=== PATIENT | female | born 1970 | race Caucasian/White ===

== ENCOUNTER 2018-11-27 09:42 | Emergency (ER) | payer SELFPAY ==
[2018-11-27] MEDS ORDERED: NA CHLORIDE 0.9% 1,000 ML ONE (10:20)
[2018-11-27] MEDS ORDERED: MORPHINE 4 MG/ML SYR ONE (10:20)
[2018-11-27] MEDS ORDERED: ONDANSETRON 4 MG/2 ML VIAL ONE (10:20)
--- NOTE | 2018-11-27 10:27 | RAD REPORT ---
EXAM DESCRIPTION: CT - Stone Protocol - 11/27/2018 10:16 am CLINICAL HISTORY: Flank pain. Hematuria;Flank pain COMPARISON: CTSTONE PROTOCOL dated 07/10/2013 TECHNIQUE: Axial images were obtained without oral or IV contrast. Lack of contrast limits solid org an and vascular assessment. The [id number] spans the entirety of the system partially obscuring uppermost abdomen and lung bases. Coronal reformatted images were obtained and reviewed. All CT scans are performed using dose optimization technique as appropriate and may include automated exposure control or mA/KV adjustment according to patient size. FINDINGS: The lower lung lewis are clear. Small hiatal hernia. Imaged portions of the liver and spleen show no suspicious findings on non-contrast imaging. The panc reas and adrenal glands are normal. No pathologic lymphadenopathy in the abdomen or pelvis. 8 mm stone (800 HU) inferior calyx left kidney without hydronephrosis. No right-sided urinary tract s tone or obstructive uropathy. No bowel obstruction, free air, free fluid or abscess. Normal appendix noted. Moderate L5-S1 spondylosis. IMPRESSION: 8 mm stone inferior calyx left kidney without hydronephrosis.
[2018-11-27 10:30] LABS: Absolute Lymphocytes (CBC) 2.8 K/uL (0.7-4.9); Absolute Monocytes 0.5 K/uL (0.1-1.3); Absolute Neutrophil 5.8 K/uL (1.8-8.0); Basophils % 0.4 % (0-1.3); Eosinophils % 3.8 % (0-4.4); Hematocrit 35.9 % (36.0-45.0); Lymphocytes % 29.2 % (15.3-44.8); MPV 8.5 fL (7.6-11.3); Monocytes % 5.5 % (3.3-12.3); RBC Red Blood Cell Count 5.59 M/uL (3.86-4.86)
[2018-11-27 10:51] LABS: Potassium 3.6 mmol/L (3.5-5.1)
[2018-11-27 11:14] LABS: Urine Bacteria <20 /HPF (<20); Urine Culture Reflex Order NOT NEEDED; Urine Mucus 2+ /HPF (NONE SEEN); Urine RBC TNTC /HPF (NONE SEEN)
[2018-11-27 11:42] LABS: Platelet Estimate ADEQ; Urine White Blood Cell Casts OK
[2018-11-27 11:43] LABS: Anisocytosis 1+; Basophilic Stippling 1+; Blood Morphology Comment NOTED (NOT SEEN); Hypochromasia 1+
--- NOTE | 2018-11-27 11:44 | ER ---
Nurse's Notes [facility] Name: Stacie Valera Age: 48 yrs Sex: Female : 1970 Arrival Date: 11/27/2018 Time: 09:45 Bed 18 Private MD: None, None Diagnosis: Hematuria;Dysuria Presentation: 11/27 09:50 Presenting complaint: Patient states: right low back and RLQ pain that began yesterday. aa5 Pt reports hematuria today and urinary frequency. 09:50 Acuity: ORAL 3 hj 09:50 Transition of care: patient was not received from another setting of care. Onset of hj symptoms was November 27, 2018. Risk Assessment: Do you want to hurt yourself or someone else? Patient reports no desire to harm self or others. Initial Sepsis Screen: Does the patient meet any 2 criteria? No. Patient's initial sepsis screen is negative. Does the patient have a suspected source of infection? No. Patient's initial sepsis screen is negative. Care prior to arrival: None. 09:50 Method Of Arrival: Ambulatory hj Triage Assessment: 09:50 General: Appears in no apparent distress. uncomfortable, Behavior is calm, cooperative, hj appropriate for age. Pain: Complains of pain in back and abdomen. 09:50 Musculoskeletal: Circulation, motion, and sensation intact. Capillary refill < 3 hj seconds. 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 - Social history:: Smoking status: Patient/guardian denies using tobacco. - Ebola Screening: : No symptoms or risks identified at this time. Screenin:17 Abuse screen: Denies threats or abuse. Denies injuries from another. Nutritional hj screening: No deficits noted. Tuberculosis screening: No symptoms or risk factors identified. Fall Risk None identified. Assessment: 09:50 General: Appears in no apparent distress. uncomfortable, Behavior is calm, cooperative, hj appropriate for age. Pain: Complains of pain in back and abdomen. Neuro: Level of Consciousness is awake, alert, obeys commands, Oriented to person, place, time, situation, Appropriate for age. Cardiovascular: Capillary refill < 3 seconds Patient's skin is warm and dry. Respiratory: Airway is patent Respiratory effort is even, unlabored, Respiratory pattern is regular, symmetrical. GI: Reports lower abdominal pain. : EENT: No signs and/or symptoms were reported regarding the EENT system. Derm: No signs and/or symptoms reported regarding the dermatologic system. Musculoskeletal: No signs and/or symptoms reported regarding the musculoskeletal system. 10:30 Reassessment: Patient and/or family updated on plan of care and expected duration. Pain hj level reassessed. Patient is alert, oriented x 3, equal unlabored respirations, skin warm/dry/pink. awaiting results and POC;. 11:28 Reassessment: Patient and/or family updated on plan of care and expected duration. Pain hj level reassessed. Patient is alert, oriented x 3, equal unlabored respirations, skin warm/dry/pink. awaiting POC: in the room;. 12:15 Reassessment: Patient appears in no apparent distress at this time. Patient and/or ch family updated on plan of care and expected duration. Pain level reassessed. Patient is alert, oriented x 3, equal unlabored respirations, skin warm/dry/pink. Patient states feeling better. Vital Signs: 09:50 BP 171 / 85; Pulse 74; Resp 16 S; Temp 97.4(TE); Pulse Ox 97% on R/A; Weight 99.79 kg aa5 (R); Height 5 ft. 5 in. (165.10 cm) (R); Pain 5/10; 10:55 BP 142 / 80; Pulse 65; Resp 18; Pulse Ox 100% on R/A; hj 11:29 BP 140 / 78; Pulse 65; Resp 18; Pulse Ox 100% on R/A; hj 12:15 BP 143 / 80; Pulse 63; Resp 16; Temp 98.4; Pulse Ox 96% on R/A; Pain 5/10; ch 09:50 Body Mass Index 36.61 (99.79 kg, 165.10 cm) aa5 ED Course: 09:45 Patient arrived in ED. mr 09:45 None, None is Private Physician. mr 09:46 Lanette Magana F[facility]-C [facility]. kb 09:46 Alber Aguirre MD is Attending Physician. kb 09:50 Arm band placed on Patient placed in an exam room, on a stretcher. aa5 09:50 Patient has correct armband on for positive identification. Placed in gown. Bed in low hj position. Call light in reach. Side rails up X 1. 09:54 Freedom Vazquez, RN is Primary Nurse. hj 10:16 CT Stone Protocol In Process Unspecified. EDMS 10:18 Triage completed. hj 10:48 Inserted saline lock: 22 gauge in right hand, using aseptic technique. ss 12:15 No apparent distress. Resting quietly. ch 12:15 Pulse ox on. NIBP on. ch 12:15 No provider procedures requiring assistance completed. IV discontinued, intact, ch bleeding controlled, No redness/swelling at site. Pressure dressing applied. Administered Medications: 10:45 Drug: NS 0.9% 1000 ml Route: IV; Rate: 1000 ml; Site: right hand; hj 12:02 Follow up: IV Status: Completed infusion hj 10:45 Drug: Zofran 4 mg Route: IVP; Site: right hand; hj 11:00 Follow up: Response: No adverse reaction hj 10:45 Drug: morphine 4 mg Route: IVP; Site: right hand; hj 11:00 Follow up: Response: No adverse reaction; Pain is decreased hj 12:06 Drug: TORadol 30 mg Route: IVP; Site: right hand; aa5 Outcome: 11:43 Discharge ordered by MD. kb 12:15 Discharged to home ambulatory, with family. 12:15 Condition: improved 12:15 Discharge instructions given to patient, family, Instructed on discharge instructions, follow up and referral plans. medication usage, Demonstrated understanding of instructions, follow-up care, medications, Prescriptions given X 2. 12:16 Patient left the ED. Signatures: Dispatcher [employer] EDCA Lanette Magana FNP-C FNP-Ckb Hammond, Christina, RN YOGESH Martha Moise mr BangMarisol RN RN aa5 Paola Almanza RN RN Freedom Vazquez RN RN
--- NOTE | 2018-11-27 11:44 | EDPHYS ---
Physician Documentation [facility] Name: Stacie Valera Age: 48 yrs Sex: Female : 1970 Arrival Date: 11/27/2018 Time: 09:45 Bed 18 Private MD: None, None ED Physician Alber Aguirre HPI: 11/27 11:57 This 48 yrs old Female presents to ER via Ambulatory with complaints of kb Urinary Problem, Back Pain. 11:58 The patient complains of pain in the right flank. The pain radiates to the right lower kb quadrant. Modifying factors: The symptoms are alleviated by nothing. the symptoms are aggravated by nothing. 11:59 Onset: The symptoms/episode began/occurred yesterday. Associated signs and symptoms: kb Pertinent positives: dysuria, hematuria, Pertinent negatives: diarrhea, dizziness, fever, urinary frequency, headache, nausea, pain radiating to the lower extremities, vomiting. Severity of pain: At its worst the pain was moderate in the emergency department the pain is unchanged. The patient has not experienced similar symptoms in the past. The patient has not recently seen a physician. 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 - Social history:: Smoking status: Patient/guardian denies using tobacco. - Ebola Screening: : No symptoms or risks identified at this time. ROS: 11:54 Constitutional: Negative for fever, chills, and weight loss, Cardiovascular: Negative kb for chest pain, palpitations, and edema, Respiratory: Negative for shortness of breath, cough, wheezing, and pleuritic chest pain, Abdomen/GI: Negative for abdominal pain, nausea, vomiting, diarrhea, and constipation, MS/Extremity: Negative for injury and deformity, Skin: Negative for injury, rash, and discoloration, Neuro: Negative for headache, weakness, numbness, tingling, and seizure. 11:54 : Positive for urinary symptoms, flank pain, urinary frequency, hematuria, burning with urination. Exam: 11:54 Constitutional: This is a well developed, well nourished patient who is awake, alert, kb and in no acute distress. Head/Face: Normocephalic, atraumatic. Chest/axilla: Normal chest wall appearance and motion. Nontender with no deformity. No lesions are appreciated. Cardiovascular: Regular rate and rhythm with a normal S1 and S2. No gallops, murmurs, or rubs. Normal PMI, no JVD. No pulse deficits. Respiratory: Lungs have equal breath sounds bilaterally, clear to auscultation and percussion. No rales, rhonchi or wheezes noted. No increased work of breathing, no retractions or nasal flaring. Back: No spinal tenderness. No costovertebral tenderness. Full range of motion. Skin: Warm, dry with normal turgor. Normal color with no rashes, no lesions, and no evidence of cellulitis. MS/ Extremity: Pulses equal, no cyanosis. Neurovascular intact. Full, normal range of motion. Neuro: Awake and alert, GCS 15, oriented to person, place, time, and situation. Cranial nerves II-XII grossly intact. Motor strength 5/5 in all extremities. Sensory grossly intact. Cerebellar exam normal. Normal gait. 11:54 Abdomen/GI: Inspection: abdomen appears normal, Bowel sounds: normal, in all quadrants, Palpation: mild abdominal tenderness, in the right lower quadrant. Vital Signs: 09:50 BP 171 / 85; Pulse 74; Resp 16 S; Temp 97.4(TE); Pulse Ox 97% on R/A; Weight 99.79 kg aa5 (R); Height 5 ft. 5 in. (165.10 cm) (R); Pain 5/10; 10:55 BP 142 / 80; Pulse 65; Resp 18; Pulse Ox 100% on R/A; hj 11:29 BP 140 / 78; Pulse 65; Resp 18; Pulse Ox 100% on R/A; hj 12:15 BP 143 / 80; Pulse 63; Resp 16; Temp 98.4; Pulse Ox 96% on R/A; Pain 5/10; ch 09:50 Body Mass Index 36.61 (99.79 kg, 165.10 cm) aa5 MDM: 09:46 Patient medically screened. kb 11:57 Data reviewed: vital signs, nurses notes. Data interpreted: Pulse oximetry: on room air kb is 100 %. Interpretation: normal. 11:58 Counseling: I had a detailed discussion with the patient and/or guardian regarding: the kb historical points, exam findings, and any diagnostic results supporting the discharge/admit diagnosis, lab results, radiology results, the need for outpatient follow up, a family practitioner, to return to the emergency department if symptoms worsen or persist or if there are any questions or concerns that arise at home. 11/27 09:53 Order name: Basic Metabolic Panel; Complete Time: 10:52 kb 11/27 09:53 Order name: CBC with Diff; Complete Time: 11:43 kb 11/27 09:53 Order name: Urine Culture kb 11/27 09:53 Order name: Urine Microscopic Only; Complete Time: 11:19 kb 11/27 10:46 Order name: CBC Smear Scan; Complete Time: 11:43 EDMS 11/27 09:53 Order name: CT Stone Protocol; Complete Time: 10:29 kb 11/27 09:53 Order name: IV Saline Lock; Complete Time: 10:04 kb 11/27 09:53 Order name: Labs collected and sent; Complete Time: 10:04 kb 11/27 09:53 Order name: Urine Dipstick-Ancillary (obtain specimen); Complete Time: 09:56 kb Administered Medications: 10:45 Drug: NS 0.9% 1000 ml Route: IV; Rate: 1000 ml; Site: right hand; hj 12:02 Follow up: IV Status: Completed infusion hj 10:45 Drug: Zofran 4 mg Route: IVP; Site: right hand; hj 11:00 Follow up: Response: No adverse reaction hj 10:45 Drug: morphine 4 mg Route: IVP; Site: right hand; hj 11:00 Follow up: Response: No adverse reaction; Pain is decreased hj 12:06 Drug: TORadol 30 mg Route: IVP; Site: right hand; aa5 Disposition: 12:17 Co-signature as Attending Physician, Alber Aguirre MD. rn Disposition: 11/27/18 11:43 Discharged to Home. Impression: Hematuria, Dysuria. - Condition is Stable. - Discharge Instructions: Dysuria, Hematuria, Adult. - Prescriptions for Cipro 500 mg Oral Tablet - take 1 tablet by ORAL route every 12 hours for 7 days; 14 tablet. Pyridium 200 mg Oral Tablet - take 1 tablet by ORAL route every 8 hours for 3 days; 9 tablet. - Medication Reconciliation Form, Thank You Letter, Antibiotic Education, Prescription Opioid Use form. - Follow up: Emergency Department; When: As needed; Reason: Worsening of condition. Follow up: Private Physician; When: 2 - 3 days; Reason: Recheck today's complaints, Continuance of care, Re-evaluation by your physician. Signatures: Dispatcher [employer] EDLanette Jarvis, FELICIA-C PERSONAL CARER-Meenu Chiu, RN RN Alber Aguirre MD MD rn Calderon, Audri RN RN aa5 Freedom Vazquez RN RN hj Corrections: (The following items were deleted from the chart) 12:16 11:43 11/27/2018 11:43 Discharged to Home. Impression: Hematuria; Dysuria. Condition is ch Stable. Forms are Medication Reconciliation Form, Thank You Letter, Antibiotic Education, Prescription Opioid Use. Follow up: Emergency Department; When: As needed; Reason: Worsening of condition. Follow up: Private Physician; When: 2 - 3 days; Reason: Recheck today's complaints, Continuance of care, Re-evaluation by your physician. kb
[2018-11-27] MEDS ORDERED: KETOROLAC 30 MG/ML INJ ONE (12:13)
== END 2018-11-27 12:16 | disposition home or self-care (01) ==
LOC: ER 09:42
DX: R30.0 Dysuria (principal); R31.9 Hematuria, unspecified; K21.9 Gastro-esophageal reflux disease without esophagitis
CPT/HCPCS: 36415; 74176; 76377; 80048; 81015; 85025; 87086; 87088; 96361; 96374; 96375; 99284; J2405; J7030

== ENCOUNTER 2018-12-07 16:23 | Emergency (ER) | payer SELFPAY ==
[2018-12-07] MEDS ORDERED: METHYLPREDNISOLONE 125 MG INJ ONE (17:27)
[2018-12-07] MEDS ORDERED: HYDROCODONE/APAP 10/325 TAB ONE (17:28)
[2018-12-07] MEDS ORDERED: KETOROLAC 30 MG/ML INJ ONE (17:28)
--- NOTE | 2018-12-07 18:32 | RAD REPORT ---
EXAM DESCRIPTION: CTSpine Lumbar Wo Con12/07/2018 6:06 pm CLINICAL HISTORY: Back pain/radiculopathy COMPARISON: None TECHNIQUE: Computed axial tomography lumbar spine was obtained with coronal and sagittal reconstruct ion. All CT scans are performed using dose optimization technique as appropriate and may include automated exposure control or mA/KV adjustment according to patient size. FINDINGS: No fracture is seen. No dislocation is noted. Small disc bulge L4-5 L5-S1 disc is thinned. Vacuum phenomena. Probable small right paracentral disc herniation which is pa rtially calcified. Left renal calculus IMPRESSION: Negative for a lumbar fracture. Probable small right paracentral calcified disc herniation L5-S1 If clinically indicated further evaluation with MRI could be obtained
[2018-12-07] MEDS ORDERED: METHOCARBAMOL 1,000 MG/10 ML VIAL IV ONE (19:19)
[2018-12-07] MEDS ORDERED: NA CHLORIDE 0.9% 100 ML IV ONE (19:20)
--- NOTE | 2018-12-07 20:29 | ER ---
Nurse's Notes [facility] Name: Stacie Valera Age: 48 yrs Sex: Female : 1970 Arrival Date: 12/07/2018 Time: 16:27 Bed 25 Private MD: Diagnosis: Sacroiliitis, not elsewhere classified;Lumbago with sciatica, unspecified side Presentation: 12/07 16:36 Presenting complaint: Patient states: low back pain since 11/28/18 after passing a sv kidney stone, was seen here on 11/27/18. Transition of care: patient was not received from another setting of care. Onset of symptoms was November 28, 2018. Initial Sepsis Screen: Does the patient meet any 2 criteria? No. Patient's initial sepsis screen is negative. Does the patient have a suspected source of infection? No. Patient's initial sepsis screen is negative. Care prior to arrival: None. 16:36 Method Of Arrival: Ambulatory sv 16:36 Acuity: ORAL 3 sv 18:45 Risk Assessment: Do you want to hurt yourself or someone else? Patient reports no ca1 desire to harm self or others. Triage Assessment: 16:36 General: Appears in no apparent distress. uncomfortable, Behavior is cooperative, sv appropriate for age, anxious. Pain: Complains of pain in low back area Pain currently is 3 out of 10 on a pain scale. Neuro: Level of Consciousness is awake, alert, obeys commands, Oriented to person, place, time, situation, Gait is steady. Respiratory: Respiratory effort is even, unlabored, Respiratory pattern is regular, symmetrical. Musculoskeletal: Range of motion: intact in all extremities. 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 - Social history:: Smoking status: Patient/guardian denies using tobacco. - Ebola Screening: : No symptoms or risks identified at this time. Screenin:45 Abuse screen: Denies threats or abuse. Denies injuries from another. Nutritional ca1 screening: No deficits noted. Tuberculosis screening: No symptoms or risk factors identified. Fall Risk None identified. Assessment: 16:45 General: Appears in no apparent distress. comfortable, Behavior is calm, cooperative, ca1 appropriate for age. Pain: Complains of pain in low back area Pain does not radiate. Pain currently is 3 out of 10 on a pain scale. at worst was 9 out of 10 on a pain scale. Quality of pain is described as crampy, Pain began a week ago. Neuro: Level of Consciousness is awake, alert, obeys commands, Oriented to person, place, time, situation. Cardiovascular: Heart tones S1 S2 present Capillary refill < 3 seconds Patient's skin is warm and dry. Respiratory: Airway is patent Respiratory effort is even, unlabored, Respiratory pattern is regular, symmetrical, Breath sounds are clear bilaterally. GI: Abdomen is round non-distended, Bowel sounds present X 4 quads. Abd is soft and non tender X 4 quads. : No deficits noted. No signs and/or symptoms were reported regarding the genitourinary system. EENT: No deficits noted. No signs and/or symptoms were reported regarding the EENT system. Derm: Skin is intact, is healthy with good turgor, Skin is pink, warm \T\ dry. Musculoskeletal: Circulation, motion, and sensation intact. Capillary refill < 3 seconds, Range of motion: intact in all extremities. 17:43 Reassessment: Patient appears in no apparent distress at this time. Patient and/or ca1 family updated on plan of care and expected duration. Pain level reassessed. Patient is alert, oriented x 3, equal unlabored respirations, skin warm/dry/pink. Pending CT scan. 19:17 Reassessment: Patient appears in no apparent distress at this time. Patient and/or ca1 family updated on plan of care and expected duration. Pain level reassessed. Patient is alert, oriented x 3, equal unlabored respirations, skin warm/dry/pink. 19:40 Reassessment: Patient appears in no apparent distress at this time. Patient is alert, ca1 oriented x 3, equal unlabored respirations, skin warm/dry/pink. Dr. Palencia at bedside. 20:44 Reassessment: Patient appears in no apparent distress at this time. Patient is alert, ca1 oriented x 3, equal unlabored respirations, skin warm/dry/pink. PT reports of feeling better, able to move better and quicker. Still feels a little pain but not as much as when she walked in here. Able to pull herself up from bed without assistance. Vital Signs: 16:38 BP 155 / 91; Pulse 99; Resp 24; Temp 97.5; Pulse Ox 99% ; Weight 99.79 kg; Height 5 ft. sv 5 in. (165.10 cm); Pain 3/10; 18:00 BP 138 / 88; Pulse 80; Resp 17 S; Temp 97.6(O); Pulse Ox 97% on R/A; ca1 19:17 BP 144 / 82; Pulse 78; Resp 18 S; Temp 97.4(O); Pulse Ox 95% on R/A; ca1 20:44 BP 138 / 88; Pulse 83; Resp 17 S; Temp 97.6(O); Pulse Ox 96% on R/A; ca1 16:38 Body Mass Index 36.61 (99.79 kg, 165.10 cm) sv ED Course: 16:27 Patient arrived in ED. mr 16:37 Triage completed. sv 16:38 Arm band placed on. sv 16:41 Anshul Romero MD is Attending Physician. kdr 16:45 Patient has correct armband on for positive identification. Placed in gown. Bed in low ca1 position. Call light in reach. Side rails up X 1. Pulse ox on. NIBP on. Warm blanket given. 17:09 Rianna Galvan, RN is Primary Nurse. ca1 17:20 No provider procedures requiring assistance completed. Inserted saline lock: 20 gauge ca1 in left forearm, using aseptic technique. 18:07 CT Lumbar Spine Wo Con In Process Unspecified. EDMS 20:40 IV discontinued, intact, bleeding controlled, No redness/swelling at site. Pressure ca1 dressing applied. Administered Medications: 17:10 Drug: [place] 10 mg-325 mg 1 tabs Route: PO; ca1 19:14 Follow up: Response: No adverse reaction ca1 17:20 Drug: SOLU-Medrol 125 mg Route: IVP; Site: left forearm; ca1 19:14 Follow up: Response: No adverse reaction ca1 17:28 Drug: TORadol - Ketorolac 15 mg Route: IVP; Site: left forearm; ca1 19:14 Follow up: Response: No adverse reaction; Pain is unchanged, physician notified ca1 19:14 Drug: Robaxin 1 grams Route: IVPB; Infused Over: 1 hrs; Site: left forearm; ca1 20:27 Follow up: Response: No adverse reaction; IV Status: Completed infusion ca1 Outcome: 20:28 Discharge ordered by . ps1 20:40 Discharged to home ambulatory, with significant other. ca1 20:40 Condition: stable 20:40 Discharge instructions given to patient, Instructed on discharge instructions, follow up and referral plans. medication usage, Demonstrated understanding of instructions, follow-up care, medications, Prescriptions given X 3. 20:52 Patient left the ED. ca1 Signatures: Dispatcher [employer] Gema Avalos RN RN sv Anshul Romero MD MD [facility] Martha Moise mr Geovanny Palencia MD MD ps1 Rianna Galvan RN RN ca1 Corrections: (The following items were deleted from the chart) 21:21 19:40 Reassessment: Patient appears in no apparent distress at this time. Patient is ca1 alert, oriented x 3, equal unlabored respirations, skin warm/dry/pink. Dr. Palencia at bedside. ca1
--- NOTE | 2018-12-07 20:29 | EDPHYS ---
Physician Documentation [facility] Name: Stacie Valera Age: 48 yrs Sex: Female : 1970 Arrival Date: 12/07/2018 Time: 16:27 Bed 25 Private MD: ED Physician nAshul Romero HPI: 12/07 17:08 This 48 yrs old Female presents to ER via Ambulatory with complaints of Back kdr Pain. 17:08 The patient presents with pain that is acute, with no known mechanism of injury, and kdr decreased range of motion, and tenderness. The symptoms are located in the low back, lumbar area. Onset: The symptoms/episode began/occurred gradually, 1 week(s) ago. The patient has occasional pain radiating down her legs but not consistently. Associated signs and symptoms: The patient has no apparent associated signs or symptoms. The problem was sustained The patient had a URI over the last week with coughing but no other injury noted. Modifying factors: The patient symptoms are alleviated by remaining still, the patient symptoms are aggravated by any movement, bending, coughing. Severity of symptoms: At their worst the symptoms were incapacitating, a " 9" out of "10", in the emergency department the symptoms a " 3" out of "10". The patient has not experienced similar symptoms in the past. The patient has not recently seen a physician. 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 - Social history:: Smoking status: Patient/guardian denies using tobacco. - Ebola Screening: : No symptoms or risks identified at this time. ROS: 17:08 Constitutional: Negative for fever, chills, and weight loss, Eyes: Negative for injury, kdr pain, redness, and discharge, Neck: Negative for injury, pain, and swelling, Cardiovascular: Negative for chest pain, palpitations, and edema, Respiratory: Negative for shortness of breath, cough, wheezing, and pleuritic chest pain, Abdomen/GI: Negative for abdominal pain, nausea, vomiting, diarrhea, and constipation, : Negative for injury, bleeding, discharge, and swelling, MS/Extremity: Negative for injury and deformity, Skin: Negative for injury, rash, and discoloration, Neuro: Negative for headache, weakness, numbness, tingling, and seizure activity. Psych: Negative for depression, anxiety, suicide ideation, homicidal ideation, and hallucinations, Allergy/Immunology: Negative for hives, rash, and allergies, Endocrine: Negative for neck swelling, polydipsia, polyuria, polyphagia, and marked weight changes, Hematologic/Lymphatic: Negative for swollen nodes, abnormal bleeding, and unusual bruising. 17:08 Back: Positive for decreased range of motion, pain at rest, pain with movement, radiated pain, of the lumbar area. Exam: 17:08 Constitutional: This is a well developed, well nourished patient who is awake, alert, kdr and in no acute distress. Head/Face: Normocephalic, atraumatic. Chest/axilla: Normal chest wall appearance and motion. Nontender with no deformity. No lesions are appreciated. Cardiovascular: Regular rate and rhythm with a normal S1 and S2. No gallops, murmurs, or rubs. Normal PMI, no JVD. No pulse deficits. Respiratory: Lungs have equal breath sounds bilaterally, clear to auscultation and percussion. No rales, rhonchi or wheezes noted. No increased work of breathing, no retractions or nasal flaring. Abdomen/GI: Soft, non-tender, with normal bowel sounds. No distension or tympany. No guarding or rebound. No evidence of tenderness throughout. 17:08 Back: pain, that is mild, that is moderate, of the lumbar area, ROM is painful, with all movement, normal spinal alignment noted, CVA tenderness, is absent, vertebral tenderness, is appreciated at L2, L3, L4, L5 and sacrum, Straight leg raises: right lower extremity illicits pain, at 30 degrees, left lower extremity illicits pain, at 45 degrees. Vital Signs: 16:38 BP 155 / 91; Pulse 99; Resp 24; Temp 97.5; Pulse Ox 99% ; Weight 99.79 kg; Height 5 ft. sv 5 in. (165.10 cm); Pain 3/10; 18:00 BP 138 / 88; Pulse 80; Resp 17 S; Temp 97.6(O); Pulse Ox 97% on R/A; ca1 19:17 BP 144 / 82; Pulse 78; Resp 18 S; Temp 97.4(O); Pulse Ox 95% on R/A; ca1 20:44 BP 138 / 88; Pulse 83; Resp 17 S; Temp 97.6(O); Pulse Ox 96% on R/A; ca1 16:38 Body Mass Index 36.61 (99.79 kg, 165.10 cm) sv MDM: 17:08 Data reviewed: vital signs, nurses notes, lab test result(s), radiologic studies. kdr Counseling: I had a detailed discussion with the patient and/or guardian regarding: the historical points, exam findings, and any diagnostic results supporting the discharge/admit diagnosis, radiology results, the need for outpatient follow up. 18:58 ED course: The patient had transient relief from the initial around of medications but kdr pain has returned to initial level at presentation. 20:28 Patient medically screened. ps1 20:29 ED course: patient evaluated at bedside in the seated and prone position. Styles screen ps1 performed. Sacroiliac dysfunction on left with compensatory changes in the lumbar and thoracic spine. HVLA performed to left sacroiliac wing, lumbar, and thoracic spine. ROM improved as well as pain. Patient ambulated around ED without assistance. . 12/07 17:07 Order name: CT Lumbar Spine Wo Con; Complete Time: 18:53 kdr Administered Medications: 17:10 Drug: Magnolia 10 mg-325 mg 1 tabs Route: PO; ca1 19:14 Follow up: Response: No adverse reaction ca1 17:20 Drug: SOLU-Medrol 125 mg Route: IVP; Site: left forearm; ca1 19:14 Follow up: Response: No adverse reaction ca1 17:28 Drug: TORadol - Ketorolac 15 mg Route: IVP; Site: left forearm; ca1 19:14 Follow up: Response: No adverse reaction; Pain is unchanged, physician notified ca1 19:14 Drug: Robaxin 1 grams Route: IVPB; Infused Over: 1 hrs; Site: left forearm; ca1 20:27 Follow up: Response: No adverse reaction; IV Status: Completed infusion ca1 Disposition: 12/07/18 20:28 Discharged to Home. Impression: Sacroiliitis, not elsewhere classified, Lumbago with sciatica, unspecified side. - Condition is Stable. - Discharge Instructions: Sciatica, Back Exercises. - Prescriptions for Anaprox DS 550 mg Oral Tablet - take 1 tablet by ORAL route every 12 hours As needed; 20 tablet. Robaxin 500 mg Oral Tablet - take 2 tablet by ORAL route every 6 hours As needed; 40 tablet. Medrol (Brent) 4 mg Oral Tablets, Dose Pack - take 1 tablet by ORAL route as directed - follow package instructions; 1 packet. - Medication Reconciliation Form, Thank You Letter, Antibiotic Education, Prescription Opioid Use form. - Follow up: Private Physician; When: 10 - 14 days; Reason: Further diagnostic work-up, Recheck today's complaints, Continuance of care. Follow up: Emergency Department; When: As needed; Reason: Worsening of condition. - Problem is new. - Symptoms have improved. Signatures: Dispatcher [employer] Gema Avalos RN RN sv Anshul Romero MD MD kdr Geovanny Palencia MD MD ps1 Cole, YOGESH Blanca RN ca1 Corrections: (The following items were deleted from the chart) 20:52 20:28 12/07/2018 20:28 Discharged to Home. Impression: Sacroiliitis, not elsewhere ca1 classified; Lumbago with sciatica, unspecified side. Condition is Stable. Forms are Medication Reconciliation Form, Thank You Letter, Antibiotic Education, Prescription Opioid Use. Follow up: Private Physician; When: 10 - 14 days; Reason: Further diagnostic work-up, Recheck today's complaints, Continuance of care. Follow up: Emergency Department; When: As needed; Reason: Worsening of condition. Problem is new. Symptoms have improved. ps1
== END 2018-12-07 20:52 | disposition home or self-care (01) ==
LOC: ER 16:23
DX: M46.1 Sacroiliitis, not elsewhere classified (principal); M54.40 Lumbago with sciatica, unspecified side
CPT/HCPCS: 72131; 96365; 96375; 99284; J2800; J2930

== ENCOUNTER 2020-10-16 17:36 | Emergency (ER) | payer SELFPAY ==
[2020-10-16 18:36] LABS: Urine Blood 3+ (Negative); Urine Glucose Negative (Negative); Urine Protein 3+ (Negative); Urine Specific Gravity >=1.030 (1.005-1.030); Urine pH 5.5 (5.0-7.0)
--- NOTE | 2020-10-16 19:02 | EDPHYS ---
Physician Documentation [facility] Name: Stacie Valera Age: 50 yrs Sex: Female : 1970 Arrival Date: 10/16/2020 Time: 17:40 Bed 25 Private MD: ED Physician Rod Morgan HPI: 10/16 19:21 This 50 yrs old Female presents to ER via Ambulatory with complaints of kb Urinary Problem. 19:21 The patient presents with urinary symptoms, dysuria, frequency, hematuria. Onset: The kb symptoms/episode began/occurred 1.5 week(s) ago. Modifying factors: The symptoms are alleviated by nothing, the symptoms are aggravated by urinating. Associated signs and symptoms: Pertinent positives: dysuria, hematuria, urinary frequency. Severity of symptoms: At their worst the symptoms were moderate, in the emergency department the symptoms are unchanged. The patient has not experienced similar symptoms in the past. The patient has not recently seen a physician. Historical: - Allergies: 18:00 No Known Allergies; ss - PMHx: 18:00 acid reflux; Kidney stones; ss - PSHx: 18:00 Uterine Ablation; Cervical laser sx; ss - Immunization history:: Adult Immunizations up to date. - Social history:: Smoking status: Patient denies any tobacco usage or history of. ROS: 19:19 Constitutional: Negative for fever, chills, and weight loss, Respiratory: Negative for kb shortness of breath, cough, wheezing, and pleuritic chest pain, Abdomen/GI: Negative for abdominal pain, nausea, vomiting, diarrhea, and constipation, Back: Negative for injury and pain, MS/Extremity: Negative for injury and deformity, Skin: Negative for injury, rash, and discoloration, Neuro: Negative for headache, weakness, numbness, tingling, and seizure. 19:19 : Positive for urinary frequency, hematuria, burning with urination, bladder spasms. Exam: 19:19 Constitutional: This is a well developed, well nourished patient who is awake, alert, kb and in no acute distress. Head/Face: Normocephalic, atraumatic. Respiratory: Respirations even and unlabored. No increased work of breathing, no retractions or nasal flaring. Abdomen/GI: Soft, non-tender. No distention Skin: Warm, dry with normal turgor. Normal color. MS/ Extremity: Pulses equal, no cyanosis. Neurovascular intact. Full, normal range of motion. Neuro: Awake and alert, GCS 15, oriented to person, place, time, and situation. Moves all extremities. Normal gait. Vital Signs: 17:56 BP 168 / 98; Pulse 97; Resp 16; Temp 98.3(TE); Pulse Ox 99% on R/A; Weight 74.84 kg; ss Height 5 ft. 5 in. (165.10 cm); 19:40 BP 152 / 102; Pulse 83; Resp 16 S; Temp 98.8(O); Pulse Ox 100% on R/A; bb 17:56 Body Mass Index 27.46 (74.84 kg, 165.10 cm) ss MDM: 18:00 Patient medically screened. kb 19:18 Data reviewed: vital signs, nurses notes. Data interpreted: Pulse oximetry: on room air kb is 99 %. Interpretation: normal. Counseling: I had a detailed discussion with the patient and/or guardian regarding: the historical points, exam findings, and any diagnostic results supporting the discharge/admit diagnosis, lab results, the need for outpatient follow up, a family practitioner, to return to the emergency department if symptoms worsen or persist or if there are any questions or concerns that arise at home. 04 18:00 Order name: Urine Microscopic Only kb 10/16 18:36 Order name: Urine Dipstick-Ancillary; Complete Time: 18:38 EDRI 10/16 18:00 Order name: Urine Dipstick-Ancillary (obtain specimen); Complete Time: 18:51 kb Administered Medications: 19:20 Drug: Pyridium 200 mg Route: PO; bb 19:39 Follow up: Response: No adverse reaction bb 19:20 Drug: Bactrim (160 mg-800 mg (DS) 1 tablet Route: PO; bb 19:39 Follow up: Response: No adverse reaction bb Disposition: 10/17 07:33 Co-signature as Attending Physician, Rod Morgan MD I agree with the assessment and joseph plan of care. Disposition: 10/16/20 19:02 Discharged to Home. Impression: Urinary tract infection, site not specified. - Condition is Stable. - Discharge Instructions: Urinary Tract Infection, Adult, [id number]. - Prescriptions for Pyridium 200 mg Oral Tablet - take 1 tablet by ORAL route every 8 hours for 3 days; 9 tablet. Bactrim DS 800- 160 mg Oral Tablet - take 1 tablet by ORAL route every 12 hours for 7 days; 14 tablet. - Medication Reconciliation Form, Thank You Letter, Antibiotic Education, Prescription Opioid Use form. - Follow up: Emergency Department; When: As needed; Reason: Worsening of condition. Follow up: Private Physician; When: 2 - 3 days; Reason: Recheck today's complaints, Continuance of care, Re-evaluation by your physician. Signatures: Dispatcher [employer] EDLanette Jarvis, CONCRETE PAVING SUPERVISOR-C CONCRETE PAVING SUPERVISOR-Rod Elizondo MD MD cha Ballard, Brenda RN RN bb Paola Almanza RN RN ss Corrections: (The following items were deleted from the chart) 10/16 19:41 19:02 10/16/2020 19:02 Discharged to Home. Impression: Urinary tract infection, site bb not specified. Condition is Stable. Forms are Medication Reconciliation Form, Thank You Letter, Antibiotic Education, Prescription Opioid Use. Follow up: Emergency Department; When: As needed; Reason: Worsening of condition. Follow up: Private Physician; When: 2 - 3 days; Reason: Recheck today's complaints, Continuance of care, Re-evaluation by your physician. kb
--- NOTE | 2020-10-16 19:02 | ER ---
Nurse's Notes [facility] Name: Stacie Valera Age: 50 yrs Sex: Female : 1970 Arrival Date: 10/16/2020 Time: 17:40 Bed 25 Private MD: Diagnosis: Urinary tract infection, site not specified Presentation: 10/16 17:56 Chief complaint: Patient states: pain with urination and bladder spasms with blood in ss urine x 1.5 weeks. Coronavirus screen: Client denies travel out of the [place] in the last 14 days. Ebola Screen: Patient denies exposure to infectious person. Patient denies travel to an Ebola-affected area in the 21 days before illness onset. Initial Sepsis Screen: Does the patient meet any 2 criteria? No. Patient's initial sepsis screen is negative. Does the patient have a suspected source of infection? No. Patient's initial sepsis screen is negative. Risk Assessment: Do you want to hurt yourself or someone else? Patient reports no desire to harm self or others. Onset of symptoms was October 05, 2020. 17:56 Method Of Arrival: Ambulatory ss 17:56 Acuity: ORAL 4 ss Triage Assessment: 19:41 General: Behavior is calm, cooperative. bb Historical: - Allergies: 18:00 No Known Allergies; ss - PMHx: 18:00 acid reflux; Kidney stones; ss - PSHx: 18:00 Uterine Ablation; Cervical laser sx; ss - Immunization history:: Adult Immunizations up to date. - Social history:: Smoking status: Patient denies any tobacco usage or history of. Screenin:37 Abuse screen: Denies threats or abuse. Nutritional screening: No deficits noted. bb Tuberculosis screening: No symptoms or risk factors identified. Fall Risk None identified. Assessment: 19:37 General: Appears in no apparent distress. uncomfortable, slender, well groomed. Pain: bb Complains of pain in pelvis. Neuro: Level of Consciousness is awake, alert, obeys commands, Oriented to person, place, time, situation. Cardiovascular: No deficits noted. Respiratory: Respiratory effort is even, unlabored. GI: Reports lower abdominal pain. : Reports urinary frequency. Derm: Skin is pink, warm \T\ dry. Musculoskeletal: Circulation, motion, and sensation intact. 19:39 Reassessment: Patient is alert, oriented x 3, equal unlabored respirations, skin bb warm/dry/pink. pt verbalized understanding of and agrees to plan of care discharge instructions given pt ambulated with steady gait to exit. Vital Signs: 17:56 BP 168 / 98; Pulse 97; Resp 16; Temp 98.3(TE); Pulse Ox 99% on R/A; Weight 74.84 kg; ss Height 5 ft. 5 in. (165.10 cm); 19:40 BP 152 / 102; Pulse 83; Resp 16 S; Temp 98.8(O); Pulse Ox 100% on R/A; bb 17:56 Body Mass Index 27.46 (74.84 kg, 165.10 cm) ss ED Course: 17:40 Patient arrived in ED. mr 18:00 Triage completed. ss 18:00 Lanette Magana FNP-C is [facility]. kb 18:00 Rod Morgan MD is Attending Physician. kb 18:00 Arm band placed on right wrist. ss 19:37 Patient has correct armband on for positive identification. bb 19:37 No provider procedures requiring assistance completed. Patient did not have IV access bb during this emergency room visit. Administered Medications: 19:20 Drug: Pyridium 200 mg Route: PO; bb 19:39 Follow up: Response: No adverse reaction bb 19:20 Drug: Bactrim (160 mg-800 mg (DS) 1 tablet Route: PO; bb 19:39 Follow up: Response: No adverse reaction bb Outcome: 19:02 Discharge ordered by . kb 19:41 Discharged to home ambulatory. bb 19:41 Condition: stable 19:41 Discharge instructions given to patient, Instructed on discharge instructions, follow up and referral plans. medication usage, Demonstrated understanding of instructions, follow-up care, medications, Prescriptions given X 3. 19:41 Patient left the ED. bb Addendum: 10/19/2020 09:55 Addendum: Culture Results: Positive urine culture. No further action required. Bacteria i w sensitive to prescribed antibiotic. Signatures: Lanette Magana FNP-C FNP-Ckb Martha MoiseLilly, RN RN Yue Shoemaker, YOGESH ZUÑIGA Paola Almanza RN RN
[2020-10-16] MEDS ORDERED: PHENAZOPYRIDINE 100MG TAB PO ONE (19:36)
[2020-10-16] MEDS ORDERED: SMZ./TMP. 800/160 MG TABLET ONE (19:36)
[2020-10-16 20:16] LABS: Urine Bacteria >50 /HPF (<20); Urine RBC >50 /HPF (NONE SEEN)
[2020-10-16 20:27] VITALS: BP 152/102; TEMP 98.8; O2SAT 100
== END 2020-10-16 19:41 | disposition home or self-care (01) ==
LOC: ER 17:36
DX: N39.0 Urinary tract infection, site not specified (principal); R31.9 Hematuria, unspecified
CPT/HCPCS: 81003; 81015; 87077; 87086; 87088; 87186; 99283

== ENCOUNTER 2020-11-04 19:16 | Inpatient (IN) | payer SELFPAY ==
--- OUTSIDE RECORDS SUMMARY | 2020-11-04 19:19 | XMS REPORT | Continuity of Care Document ---
:1970 Author Organization [facility] t Address [address] [place] [address] Care Team Providers Name Role Phone Jose RODRÍGUEZ Attending Clinician Tim RODRÍGUEZ Attending Clinician Tim RODRÍGUEZ Admitting Clinician Problems This patient has no known problems. Allergies, Adverse Reactions, Alerts This patient has no known allergies or adverse reactions. Medications This patient has no known medications. Procedures This patient has no known procedures. Encounters Start End Encounter Admission Attending Care Care Encounter Source Date/Time Date/Time Type Type Clinicians Facility Department ID 2020-05-22 2020-05-23 Emergency Eddie Garcia [facility] [id number] 08:27:00 13:30:00 Héctor Dumont [id number] [place] [id number] [place] [id number] Results This patient has no known results.
[2020-11-04 19:46] LABS: Urine Blood 1+ (Negative); Urine Glucose Negative (Negative); Urine Protein Negative (Negative); Urine Specific Gravity 1.015 (1.005-1.030)
[2020-11-04 20:07] LABS: Urine Bacteria >50 /HPF (<20); Urine RBC <5 /HPF (NONE SEEN)
[2020-11-04 20:16] LABS: Absolute Lymphocytes (CBC) 0.9 K/uL (0.7-4.9); Basophils % 0.1 % (0-1.3); Hematocrit 29.6 % (36.0-45.0); Lymphocytes % 5.9 % (15.3-44.8); MPV 8.9 fL (7.6-11.3); RBC Red Blood Cell Count 4.54 M/uL (3.86-4.86)
[2020-11-04 20:47] LABS: Albumin 4.1 g/dL (3.4-5.0); Bilirubin Direct 0.2 mg/dL (0-0.2); Bilirubin Total 0.8 mg/dL (0.2-1.0); Potassium 3.4 mmol/L (3.5-5.1); Protein, Total 7.5 g/dL (6.4-8.2)
--- NOTE | 2020-11-04 21:20 | RAD REPORT ---
EXAM DESCRIPTION: CTAbdomen Pelvis W Contrast - 11/04/2020 9:13 pm CLINICAL HISTORY: Abdominal pain. fever, back pain, UTI COMPARISON: No comparisons TECHNIQUE: Biphasic CT imaging of the abdomen and pelvis was performed with 100 ml non-ionic IV cont rast. All CT scans are performed using dose optimization technique as appropriate and may include automated exposure control or mA/KV adjustment according to patient size. FINDINGS: The lung bases are clear. The liver, spleen, pancreas, adrenal glands and right kidney are within normal limits. There is a 7 mm stone in the distal left ureter with mild left hydronephrosis present. No bowel obstruction, free air, free fluid or abscess. The appendix is normal. No evidence of signi ficant lymphadenopathy. No suspicious bony findings. IMPRESSION: 7 mm stone distal left ureter with mild left hydronephrosis.
[2020-11-04 21:29] LABS: Blood Morphology Comment NOTED (NOT SEEN); Hypochromasia 1+; Platelet Estimate ADEQ; White Blood Cell Scan OK (OK)
[2020-11-04 22:12] LABS: Urine Specific Gravity/Preg 1.015 (1.005-1.030)
[2020-11-04] MEDS ORDERED: NA CHLORIDE 0.9% 2,000 ML ONE (22:23)
[2020-11-04] MEDS ORDERED: CEFTRIAXONE/SWI 1gm 2 GM/20 ML SYR ONE (22:23)
--- NOTE | 2020-11-04 23:23 | ER ---
Nurse's Notes [facility] Name: Stacie Valera Age: 50 yrs Sex: Female : 1970 Arrival Date: 11/04/2020 Time: 19:17 Bed 25 Private MD: Diagnosis: Hydronephrosis with renal and ureteral calculous obstruction;Cystitis Presentation: 11/04 19:28 Chief complaint: Patient states: I was here on the 9 for a UTI. I hae taken all of my jb4 meds, the pain has only gotten worse. Coronavirus screen: Client denies travel out of the [place] in the last 14 days. At this time, the client does not indicate any symptoms associated with coronavirus-19. Ebola Screen: No symptoms or risks identified at this time. Initial Sepsis Screen: Does the patient meet any 2 criteria? HR > 90 bpm. Yes. Initial Sepsis Screen: Does the patient have a suspected source of infection? No. Patient's initial sepsis screen is negative. Risk Assessment: Do you want to hurt yourself or someone else? Patient reports no desire to harm self or others. Onset of symptoms was October 16, 2020. Transition of care: patient was not received from another setting of care. 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 - Social history:: Smoking status: Patient denies any tobacco usage or history of. Patient uses alcohol, occasionally. Patient/guardian denies using street drugs. Screenin:34 Abuse screen: Denies threats or abuse. Denies injuries from another. Nutritional mg2 screening: No deficits noted. Tuberculosis screening: No symptoms or risk factors identified. Fall Risk None identified. Assessment: 19:33 General: Appears in no apparent distress. comfortable, Behavior is calm, cooperative. mg2 Pain: Complains of pain in vagina. Neuro: Level of Consciousness is awake, alert, obeys commands, Oriented to person, place, time, situation. Cardiovascular: Capillary refill < 3 seconds Patient's skin is warm and dry. Respiratory: Airway is patent Respiratory effort is even, unlabored, Respiratory pattern is regular, symmetrical. GI: No signs and/or symptoms were reported involving the gastrointestinal system. : Reports burning with urination, pain. EENT: No deficits noted. Derm: Skin is intact, is healthy with good turgor, Skin is pink, warm \T\ dry. normal. Musculoskeletal: Circulation, motion, and sensation intact. Capillary refill < 3 seconds. 21:04 Reassessment: patient to be sent for CT. mg2 22:57 Reassessment: patient advised for admission. mg2 Vital Signs: 19:28 BP 133 / 92; Pulse 119; Resp 18; Temp 99.7(O); Pulse Ox 100% on R/A; Weight 74.84 kg jb4 (R); Height 5 ft. 5 in. (165.10 cm) (R); Pain 4/10; 21:26 Pulse 97; Resp 18; Pulse Ox 95% on R/A; mg2 11/05 00:42 BP 130 / 80; Pulse 90; Resp 18; Temp 103.2; Pulse Ox 97% on R/A; mg2 11/04 19:28 Body Mass Index 27.46 (74.84 kg, 165.10 cm) jb4 ED Course: 11/04 19:17 Patient arrived in ED. cf2 19:29 Triage completed. jb4 19:30 Arm band placed on right wrist. EKG completed in triage. Results shown to MD. jb4 19:33 Faheem Camacho, RN is Primary Nurse. mg2 19:34 Patient has correct armband on for positive identification. mg2 19:45 Inserted saline lock: 20 gauge in left antecubital area, using aseptic technique. Blood mg2 collected. 19:49 Mat Guallpa PA is PHCP. jr8 19:49 Brain Eduardo MD is Attending Physician. jr8 19:55 No provider procedures requiring assistance completed. mg2 21:13 CT Abd/Pelvis - IV Contrast Only In Process Unspecified. EDMS 22:35 Inserted saline lock: 20 gauge in right wrist, using aseptic technique. mg2 22:57 COVID swab sent to lab. Patient admitted, IV remains in place. mg2 23:18 Ayush Tapia DO is Hospitalizing Provider. jr8 23:22 Leland Aguirre MD is Hospitalizing Provider. jr8 Administered Medications: 22:10 Drug: NS 0.9% 1000 ml Route: IV; Rate: 1000 ml; Site: left antecubital; mg2 11/05 00:48 Follow up: Response: No adverse reaction; IV Status: Completed infusion; IV Intake: mg2 1000ml 11/04 22:40 Drug: Rocephin - (cefTRIAXone) 2 grams Route: IVPB; Infused Over: 30 mins; Site: right mg2 wrist; 11/05 00:49 Follow up: Response: No adverse reaction; IV Status: Completed infusion mg2 11/04 22:56 Drug: NS 0.9% 1000 ml Route: IV; Rate: 1000 ml; Site: left antecubital; mg2 11/05 00:48 Follow up: IV Status: Infusion continued upon admission mg2 11/04 23:42 Drug: morphine 4 mg Route: IVP; Site: right wrist; mg2 11/05 00:48 Follow up: Response: No adverse reaction mg2 11/04 23:49 Drug: Benadryl (diphenhydrAMINE) 25 mg Route: PO; mg2 11/05 00:48 Follow up: Response: No adverse reaction mg2 00:47 Drug: Ketorolac 15 mg Route: IVP; Site: right wrist; mg2 00:48 Follow up: Response: No adverse reaction mg2 00:58 Drug: Tylenol 1000 mg Route: PO; mg2 00:58 Follow up: Response: No adverse reaction mg2 Intake: 00:48 IV: 1000ml; Total: 1000ml. mg2 Outcome: 11/04 23:22 Decision to Hospitalize by Provider. jr8 11/05 00:42 Admitted to Med/surg accompanied by nurse, via wheelchair, room 207, with chart. mg2 Condition: stable Instructed on the need for admit, Demonstrated understanding of instructions. 00:51 Patient left the ED. mg2 01:07 Patient left the ED. jm8 Signatures: Dispatcher [employer] EDMS Mat Guallpa PA PA jr8 Ky Arredondo RN RN jb4 Faheem Camacho RN RN mg2 Charlotte Mosquera cf2 Alex Chan RN RN jm8 Corrections: (The following items were deleted from the chart) 00:59 00:42 BP 130 / 80; Pulse 90bpm; Resp 18bpm; Pulse Ox 97% RA; Temp 98.9F; mg2 mg2
--- NOTE | 2020-11-04 23:23 | EDPHYS ---
Physician Documentation [facility] Name: Stacie Valera Age: 50 yrs Sex: Female : 1970 Arrival Date: 11/04/2020 Time: 19:17 Bed 25 Private MD: ED Physician Brain Eduardo HPI: 11/04 20:45 This 50 yrs old Female presents to ER via Ambulatory with complaints of UTI, jr8 fever. 20:45 Onset: The symptoms/episode began/occurred gradually, 2 week(s) ago. Associated signs jr8 and symptoms: Pertinent positives: dysuria. Modifying factors: The patient symptoms are alleviated by nothing, the patient symptoms are aggravated by nothing. The patient has experienced a previous episode. The patient has been recently seen by a physician:. Patient was seen a couple of weeks ago for urinary symptoms and was put on Bactrim. Completed round of Abx but still with symptoms and now having fever and back pain . 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 - Social history:: Smoking status: Patient denies any tobacco usage or history of. Patient uses alcohol, occasionally. Patient/guardian denies using street drugs. ROS: 20:45 Eyes: Negative for injury, pain, redness, and discharge, ENT: Negative for injury, jr8 pain, and discharge, Neck: Negative for injury, pain, and swelling, Cardiovascular: Negative for chest pain, palpitations, and edema, Respiratory: Negative for shortness of breath, cough, wheezing, and pleuritic chest pain, Abdomen/GI: Negative for abdominal pain, nausea, vomiting, diarrhea, and constipation, MS/Extremity: Negative for injury and deformity, Skin: Negative for injury, rash, and discoloration, Neuro: Negative for headache, weakness, numbness, tingling, and seizure. 20:45 Constitutional: Positive for fever. 20:45 Back: Positive for flank pain, on the left. 20:45 : Positive for urinary symptoms, burning with urination, Negative for vaginal bleeding, vaginal discharge, vaginal itching. Exam: 20:45 Eyes: Pupils equal round and reactive to light, extra-ocular motions intact. Lids and jr8 lashes normal. Conjunctiva and sclera are non-icteric and not injected. Cornea within normal limits. Periorbital areas with no swelling, redness, or edema. ENT: Nares patent. No nasal discharge, no septal abnormalities noted. Tympanic membranes are normal and external auditory canals are clear. Oropharynx with no redness, swelling, or masses, exudates, or evidence of obstruction, uvula midline. Mucous membranes moist. Neck: Trachea midline, no thyromegaly or masses palpated, and no cervical lymphadenopathy. Supple, full range of motion without nuchal rigidity, or vertebral point tenderness. No Meningismus. 20:45 Respiratory: Lungs have equal breath sounds bilaterally, clear to auscultation and percussion. No rales, rhonchi or wheezes noted. No increased work of breathing, no retractions or nasal flaring. Abdomen/GI: Soft, non-tender, with normal bowel sounds. No distension or tympany. No guarding or rebound. No evidence of tenderness throughout. Back: No spinal tenderness. Full range of motion. Mild CVA tenderness noted left side Skin: Warm, dry with normal turgor. Normal color with no rashes, no lesions, and no evidence of cellulitis. MS/ Extremity: Pulses equal, no cyanosis. Neurovascular intact. Full, normal range of motion. Neuro: Awake and alert, GCS 15, oriented to person, place, time, and situation. Cranial nerves II-XII grossly intact. Motor strength 5/5 in all extremities. Sensory grossly intact. 20:45 Cardiovascular: Rate: tachycardic, Rhythm: regular, Pulses: Pulses are 2+ in bilateral radial, brachial, femoral, popliteal, posterior tibial and and dorsalis pedis arteries.. Heart sounds: normal, normal S1and S2, no S3 or S4, no murmur, no rub, no gallop, Edema: is not appreciated. Vital Signs: 19:28 BP 133 / 92; Pulse 119; Resp 18; Temp 99.7(O); Pulse Ox 100% on R/A; Weight 74.84 kg jb4 (R); Height 5 ft. 5 in. (165.10 cm) (R); Pain 4/10; 21:26 Pulse 97; Resp 18; Pulse Ox 95% on R/A; mg2 11/05 00:42 BP 130 / 80; Pulse 90; Resp 18; Temp 103.2; Pulse Ox 97% on R/A; mg2 11/04 19:28 Body Mass Index 27.46 (74.84 kg, 165.10 cm) jb4 MDM: 11/04 19:50 Patient medically screened. [facility] 23:16 Data reviewed: vital signs, nurses notes, lab test result(s), radiologic studies, CT jr8 scan. Data interpreted: Pulse oximetry: on room air is 95 %. Interpretation: normal. Counseling: I had a detailed discussion with the patient and/or guardian regarding: the historical points, exam findings, and any diagnostic results supporting the discharge/admit diagnosis, lab results, radiology results, the need for further work-up and treatment in the hospital. ED course: Spoke with Dr. Peres about patient. Stated that if her VS are stabilizing and is not appearing to be worse or toxic. That we can admit to medicine and have them call him back in the AM tomorrow for further workup and will be happy to see patient . 11/04 19:44 Order name: Urine --Ancillary (enter results); Complete Time: 23:07 [facility] 11/04 19:45 Order name: Urine Microscopic Only; Complete Time: 20:12 [facility] 11/04 19:45 Order name: Basic Metabolic Panel; Complete Time: 21:05 [facility] 11/04 19:45 Order name: CBC with Diff; Complete Time: 21:37 [facility] 11/04 19:45 Order name: Hepatic Function; Complete Time: 21:05 [facility] 11/04 19:45 Order name: Lipase; Complete Time: 21:05 [facility] 11/04 19:46 Order name: Urine Dipstick-Ancillary; Complete Time: 20:02 EDMS 11/04 19:46 Order name: Urine Culture [facility] 11/04 21:29 Order name: CBC Smear Scan; Complete Time: 21:37 EDLA 11/04 21:46 Order name: Blood Culture Adult (2) 8 11/04 21:46 Order name: Procalcitonin 8 11/04 21:46 Order name: Blood Culture [facility] 11/04 21:46 Order name: Procalcitonin; Complete Time: 00:10 EDMS 11/04 19:45 Order name: IV Saline Lock; Complete Time: 19:55 mg2 11/04 19:45 Order name: Labs collected and sent; Complete Time: 19:55 mg2 11/04 19:45 Order name: Urine Dipstick-Ancillary (obtain specimen); Complete Time: 19:45 mg2 11/04 20:41 Order name: CT Abd/Pelvis - IV Contrast Only; Complete Time: 21:37 8 11/04 21:56 Order name: Lactate; Complete Time: 00:30 jr8 11/05 00:21 Order name: SARS-COV-2 RT PCR; Complete Time: 00:22 EDLA 11/05 00:36 Order name: NPO; Complete Time: 00:41 la1 Administered Medications: 22:10 Drug: NS 0.9% 1000 ml Route: IV; Rate: 1000 ml; Site: left antecubital; mg2 11/05 00:48 Follow up: Response: No adverse reaction; IV Status: Completed infusion; IV Intake: mg2 1000ml 11/04 22:40 Drug: Rocephin - (cefTRIAXone) 2 grams Route: IVPB; Infused Over: 30 mins; Site: right mg2 wrist; 11/05 00:49 Follow up: Response: No adverse reaction; IV Status: Completed infusion mg2 11/04 22:56 Drug: NS 0.9% 1000 ml Route: IV; Rate: 1000 ml; Site: left antecubital; mg2 11/05 00:48 Follow up: IV Status: Infusion continued upon admission mg2 11/04 23:42 Drug: morphine 4 mg Route: IVP; Site: right wrist; mg2 11/05 00:48 Follow up: Response: No adverse reaction mg2 11/04 23:49 Drug: Benadryl (diphenhydrAMINE) 25 mg Route: PO; mg2 11/05 00:48 Follow up: Response: No adverse reaction mg2 00:47 Drug: Ketorolac 15 mg Route: IVP; Site: right wrist; mg2 00:48 Follow up: Response: No adverse reaction mg2 00:58 Drug: Tylenol 1000 mg Route: PO; mg2 00:58 Follow up: Response: No adverse reaction mg2 Disposition: 03:05 Co-signature as Attending Physician, Brain Eduardo MD. pkl Disposition: 11/04/20 23:22 Hospitalization ordered by Leland Aguirre for Inpatient Admission. Preliminary diagnosis are Hydronephrosis with renal and ureteral calculous obstruction, Cystitis. - Bed requested for Telemetry/MedSurg (Inpatient). - Status is Inpatient Admission. jm8 - Condition is Stable. - Problem is new. - Symptoms have improved. Signatures: Dispatcher [employer] EDLA Brain Eduardo MD MD pkl Roszak, Josh, PA PA jr8 Arslan Craft, GRADES 7 8 TUTOR-C GRADES 7 8 TUTOR-Cla1 Magda Diggs RN RN tl1 Ky Arredondo, RN RN jb4 Faheem Camacho, RN RN mg2 Aelx Chan, RN RN jm8 Corrections: (The following items were deleted from the chart) 11/04 23:13 21:45 CORONAVIRUS+Z ordered. [facility] EDLA 23:16 20:45 Respiratory: Lungs have equal breath sounds bilaterally, clear to auscultation jr8 and percussion. No rales, rhonchi or wheezes noted. No increased work of breathing, no retractions or nasal flaring. Abdomen/GI: Soft, non-tender, with normal bowel sounds. No distension or tympany. No guarding or rebound. No evidence of tenderness throughout. Back: No spinal tenderness. No costovertebral tenderness. Full range of motion. Skin: Warm, dry with normal turgor. Normal color with no rashes, no lesions, and no evidence of cellulitis. MS/ Extremity: Pulses equal, no cyanosis. Neurovascular intact. Full, normal range of motion. Neuro: Awake and alert, GCS 15, oriented to person, place, time, and situation. Cranial nerves II-XII grossly intact. Motor strength 5/5 in all extremities. Sensory grossly intact. jr8 23:22 23:22 Hospitalization Ordered by Ayush Tapia DO for Inpatient Admission. Preliminary jr8 diagnosis is Hydronephrosis with renal and ureteral calculous obstruction; Cystitis. Bed requested for Telemetry/MedSurg (Inpatient). Status is Inpatient Admission. Condition is Stable. Problem is new. Symptoms have improved. jr8 11/05 00:33 11/04 23:22 11/04/2020 23:22 Hospitalization Ordered by Leland Aguirre MD for Inpatient tl1 Admission. Preliminary diagnosis is Hydronephrosis with renal and ureteral calculous obstruction; Cystitis. Bed requested for Telemetry/MedSurg (Inpatient). Status is Inpatient Admission. Condition is Stable. Problem is new. Symptoms have improved. jr8 11/05 00:51 00:33 11/04/2020 23:22 Hospitalization Ordered by Leland Aguirre MD for Inpatient mg2 Admission. Preliminary diagnosis is Hydronephrosis with renal and ureteral calculous obstruction; Cystitis. Bed requested for Telemetry/MedSurg (Inpatient). Status is Inpatient Admission. Condition is Stable. Problem is new. Symptoms have improved. tl1 01:07 00:51 11/04/2020 23:22 Hospitalization Ordered by Leland Aguirre MD for Inpatient jm8 Admission. Preliminary diagnosis is Hydronephrosis with renal and ureteral calculous obstruction; Cystitis. Bed requested for Telemetry/MedSurg (Inpatient). Status is Inpatient Admission. Condition is Stable. Problem is new. Symptoms have improved. mg2
[2020-11-04] MEDS ORDERED: MORPHINE 4 MG/ML SYR ONE (23:59)
[2020-11-05] MEDS ORDERED: DIPHENHYDRAMINE 25 MG TAB/CAP ONE (00:03)
--- NOTE | 2020-11-05 00:13 | P.HP ---
Certification for Inpatient Patient admitted to: Inpatient With expected LOS: >2 Midnights Patient will require the following post-hospital care: None Practitioner: I am a practitioner with admitting privileges, knowledge of patient current condition, hospital course, and medical plan of care. Services: Services provided to patient in accordance with Admission requirements found in Title 42 Section 412.3 of the Code of Federal Regulations Patient History Date of Service: 11/05/20 Reason for admission: UTI, Fever, Ureteral colic History of Present Illness: 50-year-old female with history of kidney stones, RA, GERD presents emergency department for fever, flank pain, dysuria. Patient reports that she has diagnosis of urine tract infection on the 9th of this month and prescribed Bactrim, patient states symptoms never really resolves the pain became significantly worse today. Patient presents emergency department for evaluation was found to have elevated white blood cell count 15 hemoglobin 9.7 hematocrit 29.6 MCV 65.2 potassium 3.4 pro calcitonin 0.16 urine microscopic greater than [address] abdomen pelvis demonstrates 7 mm stone in the distal left ureter with mild left hydronephrosis. As there is some concern for infected stone urology was consulted while patient was in the emergency department who agreed to see her during hospitalization. ED provider wishes to admit for further evaluation and management. - Past Medical/Surgical History -: Kidney stones -: RA -: GERD -: Lithotripsy -: Uterine ablation Psychosocial/ Personal History: Employed, lives alone - Family History Father -: Heart disease Mother Notes: anemia beta thalasemia - Social History Smoking Status: Never smoker Alcohol use: No CD- Drugs: No Caffeine use: Yes Place of Residence: Home Review of Systems 10-point ROS is otherwise unremarkable General: Fever, Chills, Weakness, Malaise Gastrointestinal: Nausea, Abdominal Pain Musculoskeletal: Back Pain Physical Examination - Physical Exam General: Alert, In no apparent distress, Oriented x3 HEENT: Atraumatic, PERRLA, Mucous membr. moist/pink Neck: Supple, 2+ carotid pulse no bruit, No LAD Respiratory: Clear to auscultation bilaterally, Normal air movement Cardiovascular: Regular rate/rhythm, Normal S1 S2 Gastrointestinal: Normal bowel sounds, No tenderness Musculoskeletal: No tenderness Integumentary: No rashes Neurological: Normal speech, Normal strength at 5/5 x4 extr, Normal tone, Normal affect - Studies Laboratory Data (last 24 hrs) 11/04/20 19:50: WBC 15.00 H, Hgb 9.7 L, Hct 29.6 L, Plt Count 279 11/04/20 19:50: Sodium 141, Potassium 3.4 L, BUN 15, Creatinine 0.85, Glucose 98, Total Bilirubin 0.8, AST 9 L, ALT 22, Alkaline Phosphatase 74, Lipase 137 Assessment and Plan - Plan Assessment Fever, UTI, 7 mL distal left ureteral colic with mild hydronephrosis Microcytic anemia GERD Plan Fever, UTI, 7 mL distal left ureteral colic with mild hydronephrosis: Blood in urine cultures obtained continue with IV Rocephin. Neurology consulted. Silvia ent does not appear septic at this time, continue with IV hydration, NPO after midnight, SCDs for DVT prophylaxis. 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 Transfuse for hemoglobin less than 7. GERD: Continue with daily Pepcid. Discharge Plan: Home Plan to discharge in: Greater than 2 days - Advance Directives Does patient have a Living Will: No Does patient have a Durable POA for Healthcare: No - Code Status/Comfort Care Code Status Assessed: Yes (Full code) Critical Care: No Time Spent Managing Pts Care (In Minutes): 55
[2020-11-05] MEDS ORDERED: KETOROLAC 30 MG/ML INJ ONE ×2 (00:20→18:19)
[2020-11-05] MEDS ORDERED: ACETAMINOPHEN 500 MG TAB ONE (01:18)
[2020-11-05] MEDS ORDERED: ACETAMINOPHEN 500 MG TAB PO PRN (01:20)
[2020-11-05] MEDS ORDERED: ONDANSETRON 4 MG/2 ML VIAL IV PRN (01:20)
[2020-11-05] MEDS: NA CHLORIDE 0.9% 1,000 ML IV SCH ×3 (02:14→20:54)
[2020-11-05 05:02] VITALS: BMI 27.4
[2020-11-05 06:01] LABS: Basophils % 0.3 % (0-1.3); Hematocrit 28.2 % (36.0-45.0); Lymphocytes % 4.8 % (15.3-44.8); MPV 9.1 fL (7.6-11.3); RBC Red Blood Cell Count 4.28 M/uL (3.86-4.86)
[2020-11-05 06:42] LABS: Albumin 3.2 g/dL (3.4-5.0); Bilirubin Total 0.6 mg/dL (0.2-1.0); Ferritin 119.2 ng/mL (8-388); Magnesium 1.9 mg/dL (1.8-2.4); Protein, Total 6.3 g/dL (6.4-8.2)
[2020-11-05] MEDS: MORPHINE 2 MG/ML SYR IV PRN ×2 (06:57→12:06)
[2020-11-05 08:34] LABS: Anisocytosis 1+; Blood Morphology Comment NOTED (NOT SEEN); Hypochromasia 1+; Platelet Estimate ADEQ; Polychromasia SLIGHT
[2020-11-05] MEDS: FAMOTIDINE 20 MG/2 ML VIAL IV SCH (08:38)
[2020-11-05] MEDS: KCL 20 MEQ/100 mL IVPB 20 MEQ/100 ML BAG IV SCH ×2 (08:39→17:15)
[2020-11-05] MEDS: CEFTRIAXONE/SWI 1gm 1 GM/10 ML SYR IV SCH ×2 (08:39→20:46)
[2020-11-05] MEDS ORDERED: CEFTRIAXONE 1 GM/NS 50 ML 1 GM/50 ML BAG IV SCH (09:00)
[2020-11-05] MEDS ORDERED: HYDROMORPHONE HCL 0.5 MG/0.5 ML INJ IV PRN (16:15)
[2020-11-05] MEDS ORDERED: KCL 20 MEQ/100 mL IVPB 20 MEQ/100 ML BAG IV SCH (17:00)
--- NOTE | 2020-11-05 17:35 | P.PN ---
Subjective Date of Service: 11/05/20 Chief Complaint: UTI, Fever, Ureteral colic Subjective: No new changes (pain slightly better, morphine helping, hungry/thirsty) Review of Systems 10-point ROS is otherwise unremarkable Physical Examination - Vital Signs Temperature: 98.1 F Blood Pressure: 118/56 Pulse: 88 Respirations: 19 Pulse Ox (%): 97 - Studies Laboratory Data (last 24 hrs) 11/04/20 19:50: WBC 15.00 H, Hgb 9.7 L, Hct 29.6 L, Plt Count 279 11/04/20 19:50: Sodium 141, Potassium 3.4 L, BUN 15, Creatinine 0.85, Glucose 98, Total Bilirubin 0.8, AST 9 L, ALT 22, Alkaline Phosphatase 74, Lipase 137 Assessment & Plan Physician Review Additional Text: Physical Exam General: Alert, mild distress, appears slightly uncomfortable HEENT: normal conjunctiva, sclera anicteric Respiratory: Clear to auscultation bilaterally, Normal air movement Cardiovascular: Regular rate/rhythm, Normal S1 S2 Abd: soft, mild tenderness to palpation in LLQ Musculoskeletal: No tenderness Integumentary: No rashes Problem List Fever, UTI, 7 mL distal left ureteral colic with mild hydronephrosis Microcytic anemia Hypokalemia GERD -continue IV rocephin -continue IVF -NPO, SCDs, for possible OR with urology -monitor H/H -continue home pepcid -replace electrolytes -leukocytosis worse this morning Dispo: anticipate dc home in ~48hrs Time Spent Managing Pts Care (In Minutes): 35
[2020-11-05] MEDS ORDERED: propofoL 200 MG/20 ML VIAL IV ONE (18:18)
[2020-11-05] MEDS ORDERED: LIDOCAINE 1% MPF 5 ML VIAL ONE (18:19)
[2020-11-05] MEDS ORDERED: dexAMETHasone 10 MG/ML VIAL ONE (18:19)
[2020-11-05] MEDS ORDERED: ONDANSETRON 4 MG/2 ML VIAL ONE (18:19)
[2020-11-05] MEDS ORDERED: FENTANYL CITR 100 MCG/2 ML ONE (18:19)
[2020-11-05] MEDS: FENTANYL CITR 250 MCG/5 ML ONE ×2 (19:55→20:14)
[2020-11-05] MEDS ORDERED: POTASSIUM CL SA 10 MEQ TAB PO ONE ×2 (20:36→20:58)
[2020-11-05] MEDS: PHENAZOPYRIDINE 100MG TAB PO PRN (20:45)
[2020-11-05] MEDS: DIPHENHYDRAMINE 25 MG TAB/CAP PO PRN (21:58)
--- NOTE | 2020-11-05 23:19 | CON ---
Reason For Consultation: Obstructive ureterolithiasis and suspected sepsis. History Of Present Illness: Ms. Valera is a 50-year-old woman with rheumatoid arthritis, thalassem ia, GERD, who presented to the emergency department last evening after the development of fever repor tedly up to 102 Fahrenheit associated with the presence of left lower quadrant pain that radiated to her left flank. The pain was severe in intensity and colicky in nature. She also had complaints of dysuria. The Emergency Department contacted me around 10 p.m. indicating the patient was tachycardic and had a temperature to 100.0 degrees Fahrenheit since there. They were managing her with some IV fluids and IV antimicrobial. She apparently had been given a prescription for Bactrim for urinary tr act infection on 10/16/2020, but it failed to improve her symptoms. Ultimately, the discussion was t he patient could reasonably be observed for the next few hours in the emergency department, and if sh e showed any signs of sepsis, she should be transferred to a facility with urologic support overnight ; otherwise, if no signs of active sepsis, no fever greater than 100.4 degrees Fahrenheit, particular ly none greater than 101 degrees Fahrenheit, she might be admitted for IV antimicrobial, and I should be notified first thing in the morning where we would plan an urgent left ureteral stent placement. A CT scan performed in the emergency department revealed the presence of a distal left 7.3 mm uretera l calculus that was overlying the vessels in that region. Her white blood count was 15 and her creat inine was within normal limits. She ultimately was admitted, and I was notified in the early mid afparul lopez of her presence in the facility. I then immediately recommended placement of a stent. Upon further communication with the patient, she revealed that she has had multiple kidney stones pas sed since she was 22 years old. She has had what may have been a shock wave lithotripsy, she does no t recall which side, about 8 years ago at a hospital outside of [facility]. She has not had any other gareth gical interventions though she does feel she has passed multiple additional calculi. As described ab darlene, her pain is in the left lower quadrant and radiates into the left flank. Her last febrile episo de was around 1 a.m. Past Medical History: As above. Past Surgical History: Partially as described. Physical Examination: General: Patient is somewhat uncomfortable appearing, but in no acute distress. She is alert, awake , and oriented x3. There is no dyspnea or signs of respiratory distress. Abdomen: Soft, and not acutely tender. Laboratory Data: As described in the HPI, CT scan I reviewed in detail revealing the presence of the left distal ureteral calculus overlying the vessels with hydronephrosis that was mild-moderate. White blood count today increased to 20.6 associated with a creatinine of 0.75. Assessment And Recommendation: This is a 50-year-old woman with rheumatoid arthritis, thalassemia, g astroesophageal reflux disease, and a history of multiple prior stone events, now with at least a com plicated urinary tract infection associated with an obstructing 7.3 mm left distal ureterolithiasis a ssociated with hydronephrosis and left flank pain. Immediate recommendation would be stent related decompression, but I counseled the patient on about 5 % chance of impaction of the stone requiring a left percutaneous nephrostomy to be placed. I explain ed that that would be done at an alternate facility by an interventional radiologists were that rachel blanco. Ultimately, definitive management of her stone should be arranged after 14 days of definitive antimic robial therapy and would be planned to occur with ureteroscopy and laser lithotripsy on the left side . She would then require metabolic stone analysis to figure out why she continues to form these many st ones. HENRIK/LUTHER Voice ID: [id number] Report ID: [id number]
--- NOTE | 2020-11-05 23:27 | OP ---
Surgeon: DEANDRE HINDS Preoperative Diagnoses: 1.Left obstructive ureterolithiasis, distal left ureter. 2.Complicated urinary tract infection, possible sepsis. 3.Left flank pain. 4.Left lower quadrant pain. Postoperative Diagnoses: 1.Left obstructive ureterolithiasis, distal left ureter. 2.Complicated urinary tract infection, possible sepsis. 3.Left flank pain. 4.Left lower quadrant pain. Principal Procedure: 1.Cystoscopy. 2.Left retrograde pyelography. 3.Left ureteral stent placement. Indication For Procedure: Please see the history and physical consultation note taken prior to the s urgkayleen today. Procedure In Detail: The patient was consented in the preoperative holding area before being transfe rred to the operative suite where general anesthesia using an LMA was induced. She was given ceftria xone on the floor, which was sufficient IV antimicrobial prophylaxis. Pneumo boots were provided for DVT prophylaxis. She was placed in the lithotomy position, padded and secured to the table appropri ately. Her genitalia were prepped using Hibiclens and draped in standard fashion. The case was begu n using a 22-Guamanian rigid cystoscope to traverse the urethra and into the bladder with ease. The aleah dder was surveyed in its entirety, and while no mucosal lesions were noted and no foreign bodies or s tones were present, there was a miliary appearance to erythematous micropapillary spots throughout th e mucosa consistent with likely cystitis. The ureteral orifices were orthotopic in location, and so I cannulated the left ureteral orifice using the tip of a 5-Guamanian ureteral access catheter. I then performed a retrograde pyelogram. Left retrograde pyelography: Using a 70:30 mixture of Omnipaque and saline, contrast was injected via the lumen of the 5-Guamanian ur eteral access catheter and did progress with some delayed upward progression due to very distal urete ral obstruction present likely within 1 or 2 cm of the ureterovesical junction. There was extensive ureteronephrosis all the way up associated with mild-moderate pelvocaliectasis. Contrast eventually did enter the collecting system and identified it as the target of the stent location. I thus passed a Sensor wire with ease beyond this point of obstruction via the 5-Guamanian ureteral access catheter a nd observed it coil within the upper pole of the kidney. Over the Sensor wire, I was able to pass a 6-Guamanian x 26 cm double-J left ureteral stent with some initial resistance due to the mild-moderately impacted nature of the distal ureteral calculus. Eventually, I was able to pass the stent all the w ay into the kidney and observed a coil form within the upper pole calyx. An additional coil was form ed within the bladder, observed cystoscopically, and some cloudy appearing and mildly hemorrhagic manuelito earing urine did emanate from within. I then decompressed her bladder of fluid and urine, and the caitlin godinze was then taken out of the lithotomy position. She was then awakened from general anesthesia, t ransferred to a stretcher, and then transferred to the recovery room in good condition. Complications: None. Discharge Disposition: She should be treated with 14 days of a culture sensitive antimicrobial once the organism is known and then ultimately will require definitive ureteroscopic management of the lef t distal ureteral calculus. She subsequently will then benefit from a metabolic evaluation to deciph er her reason for recurrent stone forming events. HENRIK/LUTHER Voice ID: [id number] Report ID: [id number]
[2020-11-06] MEDS: HYDROCODONE/APAP 5/325 MG TAB PO PRN ×6 (00:44→22:00)
[2020-11-06] MEDS: NA CHLORIDE 0.9% 1,000 ML IV SCH ×4 (01:20→13:49)
[2020-11-06 06:03] LABS: Absolute Lymphocytes (CBC) 0.7 K/uL (0.7-4.9); Basophils % 0.2 % (0-1.3); Hematocrit 27.3 % (36.0-45.0); Lymphocytes % 5.4 % (15.3-44.8); MPV 9.1 fL (7.6-11.3); RBC Red Blood Cell Count 4.05 M/uL (3.86-4.86)
[2020-11-06 06:24] LABS: ALT/SGPT 18 U/L (12-78); AST/SGOT 9 U/L (15-37); Albumin 2.8 g/dL (3.4-5.0); Alkaline Phosphatase 64 U/L (45-117); BUN Blood Urea Nitrogen 14 mg/dL (7-18); Bicarbonate 22 mmol/L (21-32); Bilirubin Total 0.3 mg/dL (0.2-1.0); Glucose Level 144 mg/dL (74-106); Magnesium 2.3 mg/dL (1.8-2.4); Potassium 4.2 mmol/L (3.5-5.1); Protein, Total 6.2 g/dL (6.4-8.2); Sodium Level 141 mmol/L (136-145)
[2020-11-06] MEDS: FAMOTIDINE 20 MG/2 ML VIAL IV SCH (08:33)
[2020-11-06] MEDS: CEFTRIAXONE/SWI 1gm 1 GM/10 ML SYR IV SCH ×2 (08:33→20:46)
[2020-11-06 10:14] VITALS: O2SAT 98
[2020-11-06] MEDS: PHENAZOPYRIDINE 100MG TAB PO PRN ×2 (11:19→20:46)
--- NOTE | 2020-11-06 11:37 | P.CNS ---
Date of Consult: 11/06/20 Chief Complaint: UTI, Fever, Ureteral colic History of Present Illness: The patient is a 50-year-old female with a past medical history of frequent kidney stones with Co-occurring urinary tract infections, rheumatoid arthritis, and GERD who presented to the emergency department with fever, flank pain, and dysuria. Patient states she was diagnosed with the UTI on on the 9th of this month and was prescribed Bactrim. Patient states that the symptoms never really resolved and she continued to have dysuria as well as blood in her urine. CT abdomen and pelvis demonstrates a 7 mm stone in the distal left fewer reader and mild left hydronephrosis. Patient underwent a placement of a left ureteral stents on 11/05. UA preliminary results showing gram-negative rods, awaiting final report. Blood culture grew gram-negative rods in 1 out of 4 vials, repeat blood culture ordered on 11/06. Patient started on empiric ceftriaxone. Responding well to the antibiotics with decrease in WBC count. Patient denies nausea, vomiting, diarrhea, chest pain, shortness breath. Patient reports lower abdominal pain as well as dysuria. Allergies No Known Allergies Allergy (Verified 11/05/20 04:35) Home Medications: Aspirin/Acetaminophen/Caffeine [Excedrin Extra Strength Caplet] 1 each PO Q6H PRN 11/05/20 Diphenhydramine [Benadryl Tab/Cap] 25 mg PO BEDTIME 11/05/20 Melatonin 10 mg PO BEDTIME PRN 11/05/20 Omeprazole 20 mg PO BEDTIME 11/05/20 - Past Medical/Surgical History Diabetic: No -: Kidney stones -: RA -: GERD -: webb -: Lithotripsy -: Uterine ablation -: debridement Psychosocial/ Personal History: Employed, lives alone - Family History Father Medical History: Heart disease Mother Notes: anemia beta thalasemia - Social History Alcohol use: Yes CD- Drugs: No Caffeine use: Yes Place of Residence: Home Review of Systems 10-point ROS is otherwise unremarkable Physical Examination Temp Pulse Resp BP Pulse Ox 97.4 F 68 16 125/58 L 98 11/06/20 08:00 11/06/20 08:00 11/06/20 08:37 11/06/20 08:00 11/06/20 08:37 General: Alert, In no apparent distress HEENT: Atraumatic, Normocephalic Neck: Supple, 2+ carotid pulse no bruit Respiratory: Clear to auscultation bilaterally, Normal air movement Cardiovascular: No edema, Normal pulses Capillary refill: <2 Seconds Gastrointestinal: Normal bowel sounds, Other (Tenderness to bilateral lower abdominal quadrants) Musculoskeletal: No clubbing, No swelling, No contractures Neurological: Normal gait, Normal speech Laboratory Last Values WBC 15.00 K/uL (4.3-10.9) H 11/04/20 19:50 RBC 4.54 M/uL (3.86-4.86) 11/04/20 19:50 Hgb 9.7 g/dL (12.0-15.0) L 11/04/20 19:50 Hct 29.6 % (36.0-45.0) L 11/04/20 19:50 MCV 65.2 fL (80-100) L 11/04/20 19:50 MCH 21.3 pg (27.0-35.0) L 11/04/20 19:50 MCHC 32.7 g/dL (32.0-36.0) 11/04/20 19:50 RDW 16.6 % (12.1-15.2) H 11/04/20 19:50 Plt Count 279 K/uL (152-406) 11/04/20 19:50 MPV 8.9 fL (7.6-11.3) 11/04/20 19:50 Neutrophils % 85.6 % (41.7-73.7) H 11/04/20 19:50 Lymphocytes % 5.9 % (15.3-44.8) L 11/04/20 19:50 Monocytes % 7.6 % (3.3-12.3) 11/04/20 19:50 Eosinophils % 0.8 % (0-4.4) 11/04/20 19:50 Basophils % 0.1 % (0-1.3) 11/04/20 19:50 Absolute Neutrophils 12.8 K/uL (1.8-8.0) H 11/04/20 19:50 Absolute Lymphocytes 0.9 K/uL (0.7-4.9) 11/04/20 19:50 Absolute Monocytes 1.1 K/uL (0.1-1.3) 11/04/20 19:50 Absolute Eosinophils 0.1 K/uL (0-0.5) 11/04/20 19:50 Absolute Basophils 0.0 K/uL (0-0.5) 11/04/20 19:50 Platelet Estimate Adeq 11/04/20 19:50 Hypochromasia 1+ 11/04/20 19:50 Microcytosis 1+ 11/04/20 19:50 Morphology Comment Noted (NOT SEEN) 11/04/20 19:50 Sodium 141 mmol/L (136-145) 11/04/20 19:50 Potassium 3.4 mmol/L (3.5-5.1) L 11/04/20 19:50 Chloride 106 mmol/L (98-107) 11/04/20 19:50 Carbon Dioxide 25 mmol/L (21-32) 11/04/20 19:50 BUN 15 mg/dL (7-18) 11/04/20 19:50 Creatinine 0.85 mg/dL (0.55-1.3) 11/04/20 19:50 Estimated GFR 71 mL/min (=/>90) L 11/04/20 19:50 Glucose 98 mg/dL (74-106) 11/04/20 19:50 Lactic Acid 1.6 mmol/L (0.4-2.0) 11/04/20 22:20 Calcium 9.3 mg/dL (8.5-10.1) 11/04/20 19:50 Total Bilirubin 0.8 mg/dL (0.2-1.0) 11/04/20 19:50 Direct Bilirubin 0.2 mg/dL (0-0.2) 11/04/20 19:50 AST 9 U/L (15-37) L 11/04/20 19:50 ALT 22 U/L (12-78) 11/04/20 19:50 Alkaline Phosphatase 74 U/L (45-117) 11/04/20 19:50 Serum Total Protein 7.5 g/dL (6.4-8.2) 11/04/20 19:50 Albumin 4.1 g/dL (3.4-5.0) 11/04/20 19:50 Globulin 3.4 g/dL (2.3-3.5) 11/04/20 19:50 Albumin/Globulin Ratio 1.2 (1.1-1.8) 11/04/20 19:50 Lipase 137 U/L (73-393) 11/04/20 19:50 Procalcitonin 0.16 ng/mL (<0.050) H 11/04/20 22:20 Urine pH 5.0 (5.0-7.0) 11/04/20 19:40 Ur Specific Webster 1.015 (1.005-1.030) 11/04/20 19:40 Glucose (UA)(Auto) Negative (Negative) 11/04/20 19:40 Urine Ketones 1+ (Negative) H 11/04/20 19:40 Urine Blood 1+ (Negative) H 11/04/20 19:40 Urine Nitrite Negative (Negative) 11/04/20 19:40 Ur Leukocyte Esterase 3+ (Negative) H 11/04/20 19:40 Urine RBC <5 /HPF (NONE SEEN) 11/04/20 19:31 Urine WBC 10-20 /HPF (<5) H 11/04/20 19:31 Ur Squamous Epith Cells <5 /HPF (NONE SEEN) 11/04/20 19:31 Urine Bacteria >50 /HPF (<20) H 11/04/20 19:31 Urine Culture Reflexed Reflexed 11/04/20 19:31 Urine Total Protein Negative (Negative) 11/04/20 19:40 Ur Specific Webster (HCG) 1.015 (1.005-1.030) 11/04/20 19:44 Urine Test Neg (NEG) 11/04/20 19:44 SARS-CoV-2 RNA (RT-PCR) Negative (NEGATIVE) 11/04/20 22:25 Smear Scan Ok (OK) 11/04/20 19:50 Temp Pulse Resp BP Pulse Ox 97.4 F 68 16 125/58 L 98 11/06/20 08:00 11/06/20 08:00 11/06/20 08:37 11/06/20 08:00 11/06/20 08:37 Conclusions/Impression: Antibiotics: ceftriaxone start: 11/05 stop: 11/19 Assessment: 1. Left renal obstructive stone with no current urinary tract infection 2. Beta thalassemia minor 3. GERD Plan: 1. Patient had placement of left ureteral stent on 11/05. Patient started on ceftriaxone, patient responding well to antibiotics. No nausea vomiting or diarrhea. Awaiting final urine culture reports. Blood cultures grew gram- negative rods in 1 of 4 bottles, repeat blood cultures ordered on 11/06. Silvia ent will mute and antibiotic course of 14 days. 2. Recommend supplementation and folic acid/B12. -medical management per primary team -continue monitor CBC and BMP -continue to monitor for signs of infection Plan of care discussed with Dr. Bloom Thank you for consultation.
--- NOTE | 2020-11-06 16:00 | P.PN ---
Subjective Date of Service: 11/06/20 Chief Complaint: UTI, Fever, Ureteral colic Subjective: Improving (overall feels improving, pain in LLQ / L flank improved. reports some burning pain at urethra with urination tolerating diet) Review of Systems 10-point ROS is otherwise unremarkable Physical Examination - Vital Signs Temperature: 98.2 F Blood Pressure: 125/60 Pulse: 65 Respirations: 16 Pulse Ox (%): 97 Assessment & Plan Physician Review Additional Text: Physical Exam Gen: Alert, NAD, sitting up, eating breakfast HEENT: normal conjunctiva, sclera anicteric Pulm: Clear to auscultation bilaterally, Normal air movement CV: Regular rate/rhythm, Normal S1 S2 Abd: soft, mild tenderness to palpation in LLQ Ext: No tenderness Integumentary: No rashes Problem List Fever, UTI, 7 mL distal left ureteral colic with mild hydronephrosis Microcytic anemia Hypokalemia GERD -continue IV rocephin, IVF -awaiting blood cultures -continue regular diet -continue home pepcid -monitor/replace electrolytes -inflammatory markers elevated -urethral pain likely from instrumentation, burning in nature -continue PRN pain meds, pyridium Dispo: anticipate dc home in ~48hrs Time Spent Managing Pts Care (In Minutes): 35
[2020-11-07] MEDS: HYDROCODONE/APAP 5/325 MG TAB PO PRN ×5 (04:19→23:58)
[2020-11-07 06:16] LABS: Absolute Lymphocytes (CBC) 1.8 K/uL (0.7-4.9); Basophils % 0.2 % (0-1.3); Hematocrit 24.5 % (36.0-45.0); Lymphocytes % 15.2 % (15.3-44.8); MPV 9.4 fL (7.6-11.3); RBC Red Blood Cell Count 3.71 M/uL (3.86-4.86)
[2020-11-07 06:27] LABS: BUN Blood Urea Nitrogen 10 mg/dL (7-18); Bicarbonate 24 mmol/L (21-32); Glucose Level 125 mg/dL (74-106); Potassium 3.9 mmol/L (3.5-5.1); Sodium Level 143 mmol/L (136-145)
[2020-11-07] MEDS: CEFTRIAXONE/SWI 1gm 1 GM/10 ML SYR IV SCH ×2 (08:33→20:54)
[2020-11-07] MEDS: FAMOTIDINE 20 MG/2 ML VIAL IV SCH (08:34)
[2020-11-07] MEDS ORDERED: POTASSIUM CL SA 10 MEQ TAB PO ONE (09:00)
[2020-11-07] MEDS ORDERED: CYANOCOBALAMIN 1000MCG/ML INJ IM ONE (15:55)
[2020-11-07] MEDS: OXYBUTYNIN CHLORIDE 5 MG TAB PO PRN ×2 (16:31→23:58)
[2020-11-07] MEDS: PHENAZOPYRIDINE 100MG TAB PO PRN (16:31)
--- NOTE | 2020-11-07 17:02 | P.PN ---
Subjective Date of Service: 11/07/20 Chief Complaint: UTI, Fever, Ureteral colic Subjective: Improving (overall feeling better but reports 7-8/10 pain with bladder spasms and dysuria which is new since procedure. Denies nausea/vomiting, +flatus, tolerating diet well) Review of Systems 10-point ROS is otherwise unremarkable Physical Examination - Vital Signs Temperature: 99.4 F Blood Pressure: 142/70 Pulse: 66 Respirations: 19 Pulse Ox (%): 95 - Studies Microbiology Data (last 24 hrs): 11/04/20 19:31 Clean Catch Urine [place] Count - Final >100,000 CFU/ML. 11/04/20 19:31 Clean Catch Urine - Final Escherichia Coli Assessment & Plan Physician Review Additional Text: Physical Exam Gen: Alert, NAD HEENT: normal conjunctiva, sclera anicteric Pulm: Clear to auscultation bilaterally, Normal air movement CV: Regular rate/rhythm, Normal S1 S2 Abd: soft, mild tenderness to palpation in LLQ Ext: No tenderness, no edema Integumentary: No rashes Problem List 7mm ureterolithiasis complicated by urinary tract infection and mild hydronephrosis s/p ureteral stent placement B thalassemia Hypokalemia GERD -continue IV rocephin, IVF dc'd -07/13 blood cx growing GNR, possible contaminant, but urine growing GNR as well -contineu diet, home pepcid -inflammatory markers improved -pain improved but still 7-8/10 at times -continue pyridium, add ditropan -pain possibly from instrumentation vs stent placement -awaiting final cultures Dispo: anticipate dc home tomorrow, awaiting repeat blood culture and improved symptoms Time Spent Managing Pts Care (In Minutes): 35
[2020-11-07] MEDS: DIPHENHYDRAMINE 25 MG TAB/CAP PO PRN (19:12)
[2020-11-07] MEDS: DOCUSATE NA 100 MG CAP PO SCH (20:54)
[2020-11-08] MEDS: HYDROCODONE/APAP 5/325 MG TAB PO PRN (06:05)
[2020-11-08 06:22] LABS: Absolute Lymphocytes (CBC) 2.4 K/uL (0.7-4.9); Basophils % 0.5 % (0-1.3); Hematocrit 26.5 % (36.0-45.0); MPV 9.3 fL (7.6-11.3); RBC Red Blood Cell Count 4.02 M/uL (3.86-4.86)
[2020-11-08 06:52] LABS: C-Reactive Protein 49.7 mg/L (<3.00); Potassium 3.7 mmol/L (3.5-5.1)
[2020-11-08] MEDS ORDERED: POTASSIUM CL SA 10 MEQ TAB PO ONE (08:00)
[2020-11-08] MEDS: DOCUSATE NA 100 MG CAP PO SCH (08:23)
[2020-11-08] MEDS: FAMOTIDINE 20 MG/2 ML VIAL IV SCH (08:24)
[2020-11-08] MEDS: PHENAZOPYRIDINE 100MG TAB PO PRN (08:24)
[2020-11-08] MEDS: CEFTRIAXONE/SWI 1gm 1 GM/10 ML SYR IV SCH (08:24)
--- NOTE | 2020-11-08 08:53 | P.DS ---
Admission Date: 11/04/20 Discharge Date: 11/08/20 Disposition: ROUTINE DISCHARGE Discharge Condition: GOOD Reason for Admission: UTI, Fever, Ureteral colic Consultations: Urology - Dr. Peres Procedures: CT Abd/pelvis (11/04): 7 mm stone distal left ureter with mild left hydronephrosis. L retrograde pyelography, cystoscopy, and L ureteral stent placement (11/05) by Dr. Peres Problem List 7mm ureterolithiasis complicated by urinary tract infection and mild hydronephrosis s/p ureteral stent placement acute on chronic anemia, h/o B thalassemia Hypokalemia GERD Brief History of Present Illness: 50-year-old female with history of kidney stones, RA, GERD presents emergency department for fever, flank pain, dysuria. Patient reports that she has diagnosis of urine tract infection on the 9 of this month and prescribed Bactrim, patient states symptoms never really resolves the pain became significantly worse today. Patient presents emergency department for evaluation was found to have elevated white blood cell count 15 hemoglobin 9.7 hematocrit 29.6 MCV 65.2 potassium 3.4 pro calcitonin 0.16 urine microscopic greater than [address] abdomen pelvis demonstrates 7 mm stone in the distal left ureter with mild left hydronephrosis. As there is some concern for infected stone urology was consulted while patient was in the emergency department who agreed to see her during hospitalization. ED provider wishes to admit for further evaluation and management. Hospital Course: Treated with empiric IV antibiotics. Patient was taken to the operating room by Dr. Peres for left ureteral stent placement. Postoperatively, patient slowly improved. She remained afebrile, but continued with some mild left flank pain, in moderate bladder spasms and urethral pain. This improved with time and with Ditropan and pyridium. 1/4 bottles grew E. coli, similar sensitivities to her urine. Repeat blood culture was negative. Patient was discharged with Levaquin for 12 additional days, to complete a 2 week course of antibiotics. She was instructed to follow up with PCP in 3-5 days. She is to follow up with urology in the next 1-2 weeks. Vital Signs/Physical Exam: Physical Exam Gen: Alert, NAD HEENT: normal conjunctiva, sclera anicteric Pulm: Clear to auscultation bilaterally, Normal air movement CV: Regular rate/rhythm, Normal S1 S2 Abd: soft, mild tenderness to palpation in LLQ Ext: No tenderness, no edema Integumentary: No rashes Temp Pulse Resp BP Pulse Ox 97.9 F 68 16 101/59 L 98 11/08/20 04:00 11/08/20 04:00 11/08/20 07:05 11/08/20 04:00 11/08/20 07:05 Laboratory Data at Discharge: WBC 8.40 K/uL (4.3-10.9) D 11/08/20 05:32 Hgb 8.7 g/dL (12.0-15.0) L 11/08/20 05:32 Hct 26.5 % (36.0-45.0) L 11/08/20 05:32 Plt Count 232 K/uL (152-406) 11/08/20 05:32 Sodium 143 mmol/L (136-145) 11/08/20 05:32 Potassium 3.7 mmol/L (3.5-5.1) 11/08/20 05:32 BUN 13 mg/dL (7-18) 11/08/20 05:32 Creatinine 0.71 mg/dL (0.55-1.3) 11/08/20 05:32 Glucose 71 mg/dL (74-106) L 11/08/20 05:32 Magnesium 2.3 mg/dL (1.8-2.4) 11/06/20 05:41 Total Bilirubin 0.3 mg/dL (0.2-1.0) 11/06/20 05:41 AST 9 U/L (15-37) L 11/06/20 05:41 ALT 18 U/L (12-78) 11/06/20 05:41 Alkaline Phosphatase 64 U/L (45-117) 11/06/20 05:41 Lipase 137 U/L (73-393) 11/04/20 19:50 Home Medications: Aspirin/Acetaminophen/Caffeine [Excedrin Extra Strength Caplet] 1 each PO Q6H PRN 11/05/20 Diphenhydramine [Benadryl*] 25 mg PO BEDTIME 11/05/20 Melatonin 10 mg PO BEDTIME PRN 11/05/20 Omeprazole 20 mg PO BEDTIME 11/05/20 Oxybutynin Chloride [Ditropan*] 5 mg PO Q8HP PRN 7 Days #21 tab 11/08/20 Phenazopyridine HCl [Pyridium] 200 mg PO Q8H PRN 7 Days #21 tablet 11/08/20 Tramadol HCl [Ultram] 50 mg PO Q8H PRN #10 tablet 11/08/20 levoFLOXacin [Levaquin] 750 mg PO DAILY #12 tab 11/08/20 levoFLOXacin [Levaquin] 750 mg PO DAILY 12 Days #12 tab 11/08/20 New Medications: Oxybutynin Chloride [Ditropan*] 5 mg PO Q8HP PRN 7 Days #21 tab PRN Reason: Pain Scale 2-4 (Mild) levoFLOXacin [Levaquin] 750 mg PO DAILY 12 Days #12 tab levoFLOXacin [Levaquin] 750 mg PO DAILY #12 tab Phenazopyridine HCl [Pyridium] 200 mg PO Q8H PRN 7 Days #21 tablet PRN Reason: Pain Scale 5-7 (Moderate) Tramadol HCl [Ultram] 50 mg PO Q8H PRN #10 tablet PRN Reason: Pain Scale 8-10 (Severe) Diet: Regular Activity: Ad pepe Followup: NONE,NONE [Primary Care Provider] - Joshua Polo MD [ACTIVE - CAN ADMIT] - Matthew Peres [ACTIVE - CAN ADMIT] - Time spent managing pt's care (in minutes): 35
[2020-11-08 09:35] VITALS: BP 136/75; TEMP 98.1
[2020-11-08] MEDS: OXYBUTYNIN CHLORIDE 5 MG TAB PO PRN (10:13)
== END 2020-11-08 11:34 | disposition home or self-care (01) | DRG 690 ==
LOC: ER 19:16 → ERHOLD 23:59 → 2ND 11-05 00:48
PROVIDERS: ADMIT Hospitalist; ATTEND Hospitalist
PROC: BT1F1ZZ Fluoroscopy of Left Kidney, Ureter and Bladder using Low Osmolar Contrast (ICD-10-PCS; 2020-11-05)
PROC: 0T9780Z Drainage of Left Ureter with Drainage Device, Via Natural or Artificial Opening Endoscopic (ICD-10-PCS; principal; 2020-11-05 17:00)
DX: N13.6 Pyonephrosis (principal); N20.1 Calculus of ureter; D50.9 Iron deficiency anemia, unspecified; K21.9 Gastro-esophageal reflux disease without esophagitis; E87.6 Hypokalemia; M06.9 Rheumatoid arthritis, unspecified; D56.3 Thalassemia minor; N39.0 Urinary tract infection, site not specified; Z60.2 Problems related to living alone; Z79.899 Other long term (current) drug therapy; Z79.82 Long term (current) use of aspirin; Z20.822 Contact with and (suspected) exposure to COVID-19
CPT/HCPCS: 36415; 51600; 74177; 74430; 80048; 80053; 80076; 81003; 81015; 81025; 82728; 83540; 83605; 83690; 83735; 84145; 84466; 85025; 86140; 87040; 87077; 87086; 87088; 87186; 87205; 96365; 96366; 96375; 99285; J0696; J1100; J1170; J2270; J2405; J2704; J3010; J3420; J3480; J7030; Q9967; U0003

== ENCOUNTER 2020-12-08 06:29 | Day surgery (SDC) | payer BC ==
--- NOTE | 2020-12-04 13:50 | RAD REPORT ---
EXAM DESCRIPTION: Jessica Conley (2 Views)12/04/2020 1:44 pm CLINICAL HISTORY: Preop for genitourinary surgery COMPARISON: None FINDINGS: The lungs appear clear of acute infiltrate. The heart is normal size IMPRESSION: No acute abnormalities displayed
[2020-12-04 14:08] LABS: Protime INR 1.03
[2020-12-08] MEDS ORDERED: Ringers Lactate 1,000 ML IV ONE ×2 (06:57→08:40)
[2020-12-08] MEDS ORDERED: CEFAZOLIN/SWI 1gm 1 GM/10 ML SYR ONE ×2 (06:57→08:13)
[2020-12-08] MEDS ORDERED: propofoL 200 MG/20 ML VIAL IV ONE (07:32)
[2020-12-08] MEDS ORDERED: MIDAZOLAM HCL 2 MG/2 ML INJ ONE (07:32)
[2020-12-08] MEDS ORDERED: FENTANYL CITR 100 MCG/2 ML ONE (07:32)
[2020-12-08] MEDS ORDERED: ROCURONIUM 50 MG/5 ML VIAL IV ONE (07:33)
[2020-12-08] MEDS ORDERED: NA CHLORIDE 0.9% 1,000 ML ONE (07:33)
[2020-12-08] MEDS ORDERED: LIDOCAINE 1% MPF 5 ML VIAL ONE (07:33)
[2020-12-08] MEDS ORDERED: ONDANSETRON 4 MG/2 ML VIAL ONE (08:05)
[2020-12-08] MEDS ORDERED: KETOROLAC 30 MG/ML INJ ONE (08:05)
[2020-12-08] MEDS ORDERED: dexAMETHasone 10 MG/ML VIAL ONE (08:05)
[2020-12-08] MEDS: HYDROMORPHONE HCL 1 MG/ML INJ ONE ×2 (08:53→09:00)
[2020-12-08] MEDS ORDERED: PROMETHAZINE INJ 25 MG/ML AMP ONE (08:59)
[2020-12-08] MEDS ORDERED: MEPERIDINE HCL 25 MG/ML SYR ONE (08:59)
--- NOTE | 2020-12-08 09:04 | RAD REPORT ---
EXAM DESCRIPTION: RAD - Urethrocystogrphy Retrograde - 12/08/2020 8:59 am CLINICAL HISTORY: ICD N 20.0 FINDINGS: A 6 fluoroscopic spot images obtained. Fluoroscopy time 0.0 minutes Left ureter was cannulated and contrast administered. Subsequently an ureteral stent was placed. Exam ination was performed by Dr Peres
[2020-12-08 09:27] VITALS: BP 137/76; TEMP 97; O2SAT 99
[2020-12-08] MEDS: PHENAZOPYRIDINE 100MG TAB PO ONE (09:35)
[2020-12-08] MEDS: HYDROCODONE/APAP 5/325 MG TAB PO PRN ×2 (09:35→10:25)
[2020-12-08] MEDS ORDERED: PHENAZOPYRIDINE 100MG TAB PO ONE (09:51)
[2020-12-08] MEDS ORDERED: HYDROCODONE/APAP 5/325 MG TAB ONE (09:51)
--- NOTE | 2020-12-08 12:46 | OP ---
Surgeon: DEANDRE HINDS Preoperative Diagnoses: 1. Left distal ureterolithiasis. 2. Recurrent stone former. Postoperative Diagnoses: 1. Left distal ureterolithiasis. 2. Recurrent stone former. 3. 7.5 mm ureteral calculus impacted. Principal Procedures: 1. Cystoscopy. 2. Left ureteroscopy, laser lithotripsy. 3. Left ureteral stent exchange. Date of Procedure: 12/08/20 Indication For Procedure: Ms. Valera presented to the hospital initially with obstructive ureterolithiasis and required placement of a ureteral stent. She presents today for definitive management of her stone noting this is her second stone event. Procedure In Detail: The patient was consented in the preoperative holding area before being transferred to the operative suite where general anesthesia was induced. She was given Ancef 2 g IV antimicrobial prophylaxis and pneumo boots were provided for DVT prophylaxis. She was placed in the lithotomy position, padded and secured to the table appropriately. Her genitalia were prepped using Hibiclens and she was draped in standard fashion. The case was begun using a 22-Russian rigid cystoscope to traverse a minimally stenotic urethra in order to enter the bladder with minimal difficulty. The bladder was then briefly surveyed, and the left ureteral stent was noted to emanate from the left ureteral orifice. This was grasped using alligator graspers and delivered via the meatus with ease. Fluoroscopic imagery was used to visualize the stent within the mid proximal ureter and a Sensor wire was passed via the indwelling ureteral stent and coiled in the putative kidney. The stent was removed over the wire, leaving the wire in place, and then utilizing direct vision semi-rigid ureteroscopy, I was able to traverse the urethra and navigate into the distal left ureter until the stone was identified. Then, utilizing a 271 nanometer laser fiber and a holmium laser setting of 0.8 joules and 10 hertz, ultimately increased to 15 hertz, I was able to fragment the 7.5 mm calculus to dust small enough to pass out off the ureter and into the bladder. I then surveyed the ureter proximally up to the level of the UPJ with ease and back out ensuring no injury to the ureter or residual calculi. When none were noted, I then removed the ureteroscope and backloaded the cystoscope over the indwelling safety wire. I then passed a 6-Russian x 26 cm double-J left ureteral stent into her left kidney with ease with a coil observed fluoroscopically within the kidney and one cystoscopically within the bladder. The patient was then taken out of the lithotomy position after her bladder was decompressed of fluid and urine, and the scope was removed, and then she was transferred to a stretcher and then to the recovery room in good condition. Complications: None. Discharge Disposition: She will keep the stent for 3-6 weeks due to observed impaction of the stone at its location in the distal ureter and a desire to prevent stricture formation. As such, followup should be established at that time. Subsequently, she will require metabolic stone profile evaluation. HENRIK/LUTHER Voice ID: [id number] Report ID: [id number] ISABEL
--- NOTE | 2020-12-09 12:10 | EKG ---
Test Date: 2020-12-04 Test Time: 12:08:27 Cell Tender Helper: ABDIAZIZ MEASUREMENT RESULTS: Intervals: Rate: 75 HI: 152 QRSD: 82 QT: 402 QTc: 448 [place]: P: -7 HI: 152 QRS: 41 T: 35 INTERPRETIVE STATEMENTS: Normal sinus rhythm Normal ECG No previous ECG available for comparison Electronically Signed On 12-09-20 11:55:44 CDT by Jerrell Anaya
== END 2020-12-08 10:15 | disposition home or self-care (01) ==
LOC: OR 06:29
PROVIDERS: ATTEND Urology
PROC: 0TF78ZZ Fragmentation in Left Ureter, Via Natural or Artificial Opening Endoscopic (ICD-10-PCS; 2020-12-08)
PROC: 0T778DZ Dilation of Left Ureter with Intraluminal Device, Via Natural or Artificial Opening Endoscopic (ICD-10-PCS; principal; 2020-12-08 07:30)
DX: N20.1 Calculus of ureter (principal); K21.9 Gastro-esophageal reflux disease without esophagitis; D56.9 Thalassemia, unspecified; Z20.822 Contact with and (suspected) exposure to COVID-19
CPT/HCPCS: 93005; 87086; 36415; 85610; 88300; 82360; 71046; 74450; 51610; 53899; 52332; U0003; J2704; J2550; J2250; J3010; J1100; J2175; J1170; J0690 ×2; J7120 ×2; J7030; J2405; 87088

== ENCOUNTER 2021-01-19 10:20 | Day surgery (SDC) | payer BC ==
[2021-01-19] MEDS ORDERED: Ringers Lactate 1,000 ML IV ONE (10:54)
[2021-01-19] MEDS ORDERED: GENTAMICIN 80 MG/100 ML BAG 80 MG/100 ML BAG IV ONE (10:55)
[2021-01-19] MEDS ORDERED: propofoL 200 MG/20 ML VIAL IV ONE (11:09)
[2021-01-19] MEDS ORDERED: LIDOCAINE 1% MPF 5 ML VIAL ONE (11:09)
[2021-01-19] MEDS ORDERED: dexAMETHasone 10 MG/ML VIAL ONE (11:09)
[2021-01-19] MEDS ORDERED: MIDAZOLAM HCL 2 MG/2 ML INJ ONE (11:09)
[2021-01-19] MEDS ORDERED: FENTANYL CITR 100 MCG/2 ML ONE ×2 (11:09→12:39)
[2021-01-19] MEDS ORDERED: ONDANSETRON 4 MG/2 ML VIAL ONE (11:09)
[2021-01-19] MEDS ORDERED: PHENAZOPYRIDINE 100MG TAB PO ONE (11:47)
[2021-01-19] MEDS ORDERED: KETOROLAC 30 MG/ML INJ ONE (12:18)
[2021-01-19 13:49] VITALS: BP 120/69; TEMP 98.2; O2SAT 10
[2021-01-19] MEDS ORDERED: HYDROCODONE/APAP 5/325 MG TAB ONE (13:54)
--- NOTE | 2021-01-19 20:22 | OP ---
Date of Procedure: 01/19/2021 Surgeon: DEANDRE HINDS Preoperative Diagnoses: 1.Retained left ureteral stent. 2.Status post left ureteroscopy and laser lithotripsy with stent exchange on 12/08/2020. Postoperative Diagnoses: 1.Retained left ureteral stent. 2.Status post left ureteroscopy and laser lithotripsy with stent exchange on 12/08/2020. Principal Procedure: Cystoscopy and left ureteral stent extraction. Indication For Procedure: Ms. Valera is a 50-year-old woman who is a recurrent stone former with a history of rheumatoid arthritis, GERD, and who had previously been admitted to the hospital with a c omplicated E. coli urinary tract infection resistant to gentamicin and Bactrim associated with an obs tructing 7 mm distal ureteral calculus without associated nephroureterolithiasis. She underwent left ureteroscopy with laser lithotripsy and stent exchange on 12/08/2020, with observed impaction of the stone at its location in the distal ureter. The stent was thus left for at least 6 weeks to allow h ealing of the area of infection or try to minimize her risk of stricture development. Unfortunately, when she came into the office on 01/13/2021 for office based cystoscopy and left ureteral stent extr action, the tip of the stent was not visible at the ureteral orifice and had retracted into the dista l ureter. Subsequent KUB confirmed the presence of the stent within the distal ureter, and she was s cheduled for left ureteroscopy with stent extraction. She presents today for that. Procedure In Detail: The patient was consented in the preoperative holding area before being transfe rred to the operative suite where general anesthesia was induced. She was given gentamicin 80 mg IV antimicrobial prophylaxis to complement the Keflex she was taking preoperatively. She was placed in the lithotomy position, padded and secured to the table appropriately, and her genitalia was prepped using Hibiclens. She was draped in standard fashion, and the case was begun using a 22-Japanese rigid cystoscope to traverse the urethra and into the bladder. The bladder was briefly surveyed after deco mpressing it of some mildly cloudy urine, and the ureteral stent was indeed this time noted to emanat e from the left ureteral orifice with a coil observed clear. As a result, I was able to simply use a n alligator grasper to grasp the coil of the stent and deliver it via her meatus with ease. She tole rated the procedure well and without complications. She was taken out of the lithotomy position, arleen kened from general anesthesia, transferred to a stretcher, and then transferred to the recovery room in good condition. Complications: None. Discharge Disposition: She should follow up in the [facility] within the coming weeks with nurse practitioner, Aakash to re-evaluate for any recurrence or persistence of her E. coli urinary tract infection. If recurrent infection with a different organism, consideration must be given to seconda ry causes since the stone has been taking care of. Otherwise, she should be established for metaboli c stone profile assessment via 2 x 24-hour urine studies and blood work done no sooner than 1 month f rom the date of stent extraction/today. She should then follow up with me about 1 month thereafter t o review the results and determine next steps in management. HENRIK/LUTHER Voice ID: [id number] Report ID: [id number]
== END 2021-01-19 14:25 | disposition home or self-care (01) ==
LOC: OR 10:20
PROVIDERS: ATTEND Urology
PROC: 0TP98DZ Removal of Intraluminal Device from Ureter, Via Natural or Artificial Opening Endoscopic (ICD-10-PCS; 2021-01-19)
PROC: 0TJB8ZZ Inspection of Bladder, Via Natural or Artificial Opening Endoscopic (ICD-10-PCS; principal; 2021-01-19 11:45)
DX: N20.0 Calculus of kidney (principal); N10 Acute pyelonephritis; N39.0 Urinary tract infection, site not specified; Z20.822 Contact with and (suspected) exposure to COVID-19
CPT/HCPCS: 87088; 87086; 52000; 52310; U0002; J2704; J2250; J3010 ×2; J1100; J7120; J1580; J2405

== ENCOUNTER 2023-05-11 10:10 | Emergency (ER) | payer BC, SELFPAY ==
--- OUTSIDE RECORDS SUMMARY | 2023-05-11 10:33 | XMS REPORT | Continuity of Care Document ---
:1970 Author Organization [facility] t Address [address] [facility]. [address] [place] [address] Care Team Providers Name Role Phone Pcp, Patient Does Not Have A Primary Care Physician +1-000-0 00-0000 LONG COLE Attending Clinician Unavailable Long Garcia Attending Clinician SONDRA MOELLER Attending Clinician Unavailable Lona Yee Attending Clinician Unknown, Attending Attending Clinician Unavailable Sondra Sommer Attending Clinician Gaston Mcdonald MD Attending Clinician GASTON MCDONALD Attending Clinician Unavailable Nitish Quintanilla Attending Clinician NITISH PENNY Attending Clinician Unavailable YIN PHAM Attending Clinician Unavailable Yin Rodriguez Attending Clinician Lora Adorno RN Attending Clinician Unavailable Only, José Chung Test Attending Clinician Unavailable Padmini Ann Attending Clinician PADMINI GHOTRA Attending Clinician Unavailable ARMEN GONZALEZ Attending Clinician Unavailable ARMEN GONZALEZ Attending Clinician Unavailable Doctor Unassigned, Sarepta Attending Clinician Unavailable Lab, Ang - Db Attending Clinician Unavailable Ebenezer Perez MD Attending Clinician EBENEZER PEREZ Attending Clinician Unavailable Michael RODRÍGUEZ, Armen Hagen Attending Clinician MAYELA SANABRIA Attending Clinician Unavailable Mayela Worthy Attending Clinician CHILO PALENCIA Attending Clinician Unavailable Chilo Palencia DO Attending Clinician Héctor Dumont MD Attending Clinician Jose Wray MD Attending Clinician Eddie Garcia MD Attending Clinician LONG COLE Admitting Clinician Unavailable MAYELA SANABRIA Admitting Clinician Unavailable NITISH PENNY Admitting Clinician Unavailable CHILO PALENCIA Admitting Clinician Unavailable Héctor Dumont MD Admitting Clinician Payers Payer Name Policy Type Policy Number Effective Date Expiration Date S ernestina [facility] [id number] 2021 00:00:00 Problems Condition Condition Condition Status Onset Resolution Last Treating Co mments Source Name Details Category Date Date Treatment Clinician Date Acute Acute Disease Active Univers anemia anemia 8-04 ity of 00:: [address] Hypoxia Hypoxia Disease Active 2019-07 Univers 1-13 ity of 00:00: [address] Obesity Obesity Disease Active 2019-07 Univers (BMI (BMI 1-13 ity of 30-39.9) 30-39.9) 00:00: [address] Allergies, Adverse Reactions, Alerts Allergy Allergy Status Severity Reaction(s) Onset Inactive Treating Comm ents Source Name Type Date Date Clinician NO KNOWN Drug Active Univers ALLERGIE Class ity of S [facility] Social History Social Habit Start Date Stop Date Quantity Comments Source History of tobacco Current smoker Un iversity of use [facility] Sexual orientation Univer sity [facility] History of Social 2022-12-24 2022-12-24 Univers ity of function 00:00:00 00:00:00 [facility] Exposure to 2022-04-29 2022-05-09 Not sure University SARS-CoV-2 (event) 00:00:00 10:28:00 [facility] Alcohol intake 2021-11-02 2021-11-02 Current drinker Unive rsity of 00:00:00 00:00:00 of alcohol [facility] [place] Tobacco use and 2021-02-10 2021-02-10 Smokeless Universit y of exposure 00:00:00 00:00:00 tobacco non-user [facility] 2021-02-10 2021-02-[address] [place] [address] 00:00:00 00:00:00 [facility] Sex Assigned At [address] [facility] y of 00:00:00 00:00:00 [facility] Smoking Status Start Date Stop Date Source Ex-smoker 2021-02-10 00:00:00 2021-02-10 00:00:00 [facility] Medications Ordered Filled Start Stop Current Ordering Indication Dosage Frequency Signature Comments Components Source Medication Medication Date Date Medication? Clinician (SIG) Name Name cefTRIAXone 2022- No 1000mg 1,000 mg, Univers (ROCEPHIN) 12-24 IV ity of 1,000 mg in 19:30: 19:55 [place], [place] NaCl 0.9% 00 :00 ONCE, 1 Medical (NS) 100 mL dose, On Bran ch MINI-BAG 12/24/22 at 1430, Administer over 30 Minutes, 100 mL
Reas on for Anti-Infec tive: Documented Infection< br>Documen aden Infection Site: Urine<br&g t;Duration of Therapy: 7 days NaCl 0.9% 2022- No 1000mL at 999 Uni vers (NS) bolus 12-24 mL/hr, ity of infusion 18:15: 19:55 1,000 mL, Jamie as 1,000 mL 00 :00 IV Medical Infusion, Branch ONCE, 1 dose, On 12/24/22 at 1315, JENNY cefdinir 2022- No [id number] 300mg Take 1 U nivers 300 mg 12-24 capsule by ity of capsule 00:00: 04:59 [facility] [place] 00 :00 every 12 Medical (twelve) Branch hours for 10 days. Nitrofurant 2021-07- No [id number] 100mg Take 1 Univers oin&Nit. 0 05-15 capsule by ity of [place] 00:00: 04:59 mouth [place] (MACROBID[place] 00 :00 the Medical 100 mg morning Branch capsule and 1 capsule in the evening. Do all this for 5 days. methylPREDN 2021-07 Yes [id number] Take by Univers ISolone 0-25 mouth ity of (MEDROL, 00:00: SEE-INSTRU Jamie as JANETT,) 4 mg 00 CTIONS. Medica l tablets follow Branch package directions benzonatate 2021-07 Yes [id number] 200mg Take 2 Univers 100 mg 0-25 capsules ity of capsule 00:00: by mouth [place] 00 every 8 Medical (eight) Branch hours as needed for Cough. methylPREDN 2021-07 Yes [id number] Take by Univers ISolone 0-25 mouth ity of (MEDROL, 00:00: SEE-INSTRU [place] as JANETT,) 4 mg 00 CTIONS. Medica l tablets follow Branch package directions benzonatate 2021-07 Yes [id number] 200mg Take 2 Univers 100 mg 0-25 capsules ity of capsule 00:00: by mouth [place] 00 every 8 Medical (eight) Branch hours as needed for Cough. methylPREDN 2021-07 Yes [id number] Take by Univers ISolone 0-25 mouth ity of (MEDROL, 00:00: SEE-INSTRU Jamie as JANETT,) 4 mg 00 CTIONS. Medica l tablets follow Branch package directions benzonatate 2021-07 Yes [id number] 200mg Take 2 Univers 100 mg 0-25 capsules ity of capsule 00:00: by mouth [place] 00 every 8 Medical (eight) Branch hours as needed for Cough. methylPREDN 2021-07 Yes [id number] Take by Univers ISolone 0-25 mouth ity of (MEDROL, 00:00: SEE-INSTRU Jamie as JANETT,) 4 mg 00 CTIONS. Medica l tablets follow Branch package directions benzonatate 2021-07 Yes [id number] 200mg Take 2 Univers 100 mg 0-25 capsules ity of capsule 00:00: by mouth [place] 00 every 8 Medical (eight) Branch hours as needed for Cough. amoxicillin 2021-07- No [id number] 1{tbl} Take 1 Univers -clavulanat 0-25 11-02 tablet by it y of e 00:00: 04:59 mouth in [place] (AUGMENTIN) 00 :00 the Medical 875-125 mg morning Branch per tablet and 1 tablet in the evening. Do all this for 7 days. amoxicillin 2021-07- No [id number] 1{tbl} Take 1 Univers -clavulanat 0-25 11-02 tablet by it y of e 00:00: 04:59 mouth in [place] (AUGMENTIN) 00 :00 the Medical 875-125 mg morning Branch per tablet and 1 tablet in the evening. Do all this for 7 days. amoxicillin 2021-07- No [id number] 1{tbl} Take 1 Univers -clavulanat 0-25 11-02 tablet by it y of e 00:00: 04:59 mouth in [place] (AUGMENTIN) 00 :00 the Medical 875-125 mg morning Branch per tablet and 1 tablet in the evening. Do all this for 7 days. ALBUTEROL Yes Inhale as Uni vers INHALE 9-08 needed. ity of 16:57: [address] ALBUTEROL Yes Inhale as Uni vers INHALE 9-08 needed. ity of 16:57: [address] ALBUTEROL Yes Inhale as Uni vers INHALE 9-08 needed. ity of 16:57: [address] ALBUTEROL Yes Inhale as Uni vers INHALE 9-08 needed. ity of 16:57: [address] ALBUTEROL Yes Inhale as Uni vers INHALE 9-08 needed. ity of 16:57: [address] ALBUTEROL Yes Inhale as Uni vers INHALE 9-08 needed. ity of 16:57: [address] ALBUTEROL Yes Inhale as Uni vers INHALE 9-08 needed. ity of 16:57: [address] ALBUTEROL Yes Inhale as Uni vers INHALE 9-08 needed. ity of 16:57: [address] albuterol Yes [id number] 2{puff} Inhale 2 Univers 90 9-08 Puffs ity of mcg/actuati 00:00: every 6 [place] as on inhaler 00 (six) Medical hours as Branch needed for Wheezing or Chest tightness. albuterol Yes [id number] 2{puff} Inhale 2 Univers 90 9-08 Puffs ity of mcg/actuati 00:00: every 6 [place] as on inhaler 00 (six) Medical hours as Branch needed for Wheezing or Chest tightness. albuterol Yes [id number] 2{puff} Inhale 2 Univers 90 9-08 Puffs ity of mcg/actuati 00:00: every 6 [place] as on inhaler 00 (six) Medical hours as Branch needed for Wheezing or Chest tightness. albuterol Yes [id number] 2{puff} Inhale 2 Univers 90 9-08 Puffs ity of mcg/actuati 00:00: every 6 [place] as on inhaler 00 (six) Medical hours as Branch needed for Wheezing or Chest tightness. albuterol Yes [id number] 2{puff} Inhale 2 Univers 90 9-08 Puffs ity of mcg/actuati 00:00: every 6 [place] as on inhaler 00 (six) Medical hours as Branch needed for Wheezing or Chest tightness. albuterol Yes [id number] 2{puff} Inhale 2 Univers 90 9-08 Puffs ity of mcg/actuati 00:00: every 6 [place] as on inhaler 00 (six) Medical hours as Branch needed for Wheezing or Chest tightness. albuterol Yes [id number] 2{puff} Inhale 2 Univers 90 9-08 Puffs ity of mcg/actuati 00:00: every 6 Jamie as on inhaler 00 (six) Medical hours as Branch needed for Wheezing or Chest tightness. cefdinir 2021- No [id number] 600mg Take 2 U nivers 300 mg 03-17 09-19 capsules ity of capsule 00:00: 04:59 by mouth [place] 00 :00 in the Medical morning Branch for 10 days. tamsulosin 0 Yes [id number] .4mg Take 1 U nivers 0.4 mg 24 6-30 capsule by ity of hr capsule 00:00: mouth [place] 00 daily. Medical Branch tamsulosin 2021-0 Yes [id number] .4mg Take 1 U nivers 0.4 mg 24 6-30 capsule by ity of hr capsule 00:00: mouth [place] 00 daily. Medical Branch tamsulosin 2021-0 Yes [id number] .4mg Take 1 U nivers 0.4 mg 24 6-30 capsule by ity of hr capsule 00:00: mouth [place] 00 daily. Medical Branch tamsulosin 2021-0 Yes [id number] .4mg Take 1 U nivers 0.4 mg 24 6-30 capsule by ity of hr capsule 00:00: mouth [place] 00 daily. Medical Branch tamsulosin 2021-0 Yes [id number] .4mg Take 1 U nivers 0.4 mg 24 6-30 capsule by ity of hr capsule 00:00: mouth [place] 00 daily. Medical Branch tamsulosin 2021-0 Yes [id number] .4mg Take 1 U nivers 0.4 mg 24 6-30 capsule by ity of hr capsule 00:00: mouth [place] 00 daily. Medical Branch tamsulosin 2021-0 Yes [id number] .4mg Take 1 U nivers 0.4 mg 24 6-30 capsule by ity of hr capsule 00:00: mouth [place] 00 daily. Medical Branch tamsulosin 2021-0 Yes [id number] .4mg Take 1 U nivers 0.4 mg 24 6-30 capsule by ity of hr capsule 00:00: mouth [place] 00 daily. Medical Branch ciprofloxac 0 2021- No [id number] 500mg Take 1 Univers in HCl 500 01-06 tablet by ity of mg tablet 00:00: 04:59 mouth [place] 00 :00 every 12 Medical (twelve) Branch hours for 7 days. traMADoL 50 2021-0 2021- No [id number] 50mg Take 1 Uni vers mg tablet 01-06-08 tablet by ity of 00:00: 04:59 mouth [place] 00 :00 every 8 Medical (eight) Branch hours as needed for Pain (scale 4-6) for up to 7 days. Indication s: acute pain predniSONE 2021-0 Yes [id number] 6 QD X 5 Univers 10 mg 4-26 D, 5 QD X ity of tablet 00:00: 5 D, 4 QD [place] 00 X 5D, 3 QD Medical X 5D, 2 QD Branch X 5D, 1 QD X 5D, 1/2 QD X 5D. methocarbam 2021-0 Yes [id number] 1000mg Take 2 Univers oL 500 mg 4-26 tablets by ity of tablet 00:00: mouth 4 [place] 00 (four) Medical times Branch daily as needed for Pain (scale 4-6). predniSONE 2021-0 Yes [id number] 6 QD X 5 Univers 10 mg 4-26 D, 5 QD X ity of tablet 00:00: 5 D, 4 QD [place] 00 X 5D, 3 QD Medical X 5D, 2 QD Branch X 5D, 1 QD X 5D, 1/2 QD X 5D. methocarbam 2021-0 Yes [id number] 1000mg Take 2 Univers oL 500 mg 4-26 tablets by ity of tablet 00:00: mouth 4 [place] 00 (four) Medical times Branch daily as needed for Pain (scale 4-6). predniSONE 2021-0 Yes [id number] 6 QD X 5 Univers 10 mg 4-26 D, 5 QD X ity of tablet 00:00: 5 D, 4 QD [place] 00 X 5D, 3 QD Medical X 5D, 2 QD Branch X 5D, 1 QD X 5D, 1/2 QD X 5D. methocarbam 2021-0 Yes [id number] 1000mg Take 2 Univers oL 500 mg 4-26 tablets by ity of tablet 00:00: mouth 4 [place] 00 (four) Medical times Branch daily as needed for Pain (scale 4-6). predniSONE 2021-0 Yes [id number] 6 QD X 5 Univers 10 mg 4-26 D, 5 QD X ity of tablet 00:00: 5 D, 4 QD [place] 00 X 5D, 3 QD Medical X 5D, 2 QD Branch X 5D, 1 QD X 5D, 1/2 QD X 5D. methocarbam 2021-0 Yes [id number] 1000mg Take 2 Univers oL 500 mg 4-26 tablets by ity of tablet 00:00: mouth 4 [place] 00 (four) Medical times Branch daily as needed for Pain (scale 4-6). predniSONE 2021-0 Yes [id number] 6 QD X 5 Univers 10 mg 4-26 D, 5 QD X ity of tablet 00:00: 5 D, 4 QD [place] 00 X 5D, 3 QD Medical X 5D, 2 QD Branch X 5D, 1 QD X 5D, 1/2 QD X 5D. methocarbam 2021-0 Yes [id number] 1000mg Take 2 Univers oL 500 mg 4-26 tablets by ity of tablet 00:00: mouth 4 (four) Medical times Branch daily as needed for Pain (scale 4-6). predniSONE 2021-0 Yes [id number] QD X 5 Univers 10 mg 4-26 D, 5 QD X ity of tablet 00:00: 5 D, 4 QD [place] 00 X 5D, 3 QD Medical X 5D, 2 QD Branch X 5D, 1 QD X 5D, 1/2 QD X 5D. methocarbam 2021-0 Yes [id number] 1000mg Take 2 Univers oL 500 mg 4-26 tablets by ity of tablet 00:00: mouth 4 (four) Medical times Branch daily as needed for Pain (scale 4-6). methocarbam 2021-0 Yes [id number] 1000mg Take 2 Univers oL 500 mg 4-26 tablets by ity of tablet 00:00: mouth 4 (four) Medical times Branch daily as needed for Pain (scale 4-6). methocarbam 2021-0 Yes [id number] 1000mg Take 2 Univers oL 500 mg 4-26 tablets by ity of tablet 00:00: mouth 4 (four) Medical times Branch daily as needed for Pain (scale 4-6). methocarbam 2021-0 Yes [id number] 1000mg Take 2 Univers oL 500 mg 4-26 tablets by ity of tablet 00:00: mouth 4 (four) Medical times Branch daily as needed for Pain (scale 4-6). methocarbam 2021-0 Yes [id number] 1000mg Take 2 Univers oL 500 mg 4-26 tablets by ity of tablet 00:00: mouth (four) Medical times Branch daily as needed for Pain (scale 4-6). methocarbam 2021-0 Yes [id number] 1000mg Take 2 Univers oL 500 mg 4-26 tablets by ity of tablet 00:00: mouth 4 (four) Medical times Branch daily as needed for Pain (scale 4-6). predniSONE 2021-0 2022- No [id number] 6 QD X 5 Univers 10 mg 4-26 10-25 D, 5 QD X ity of tablet 00:00: 00:00 5 D, 4 QD [place] 00 :00 X 5D, 3 QD Medical X 5D, 2 QD Branch X 5D, 1 QD X 5D, 1/2 QD X 5D. Omeprazole 2021-0 Yes Take by Univ ers 20 mg 4-15 mouth. ity of tablet 11:42: [address] Omeprazole 2021-0 Yes Take by Univ ers 20 mg 4-15 mouth. ity of tablet 11:42: [address] Omeprazole 2021-0 Yes Take by Univ ers 20 mg 4-15 mouth. ity of tablet 11:42: [address] Omeprazole 2021-0 Yes Take by Univ ers 20 mg 4-15 mouth. ity of tablet 11:42: [address] Omeprazole 2021-0 Yes Take by Univ ers 20 mg 4-15 mouth. ity of tablet 11:42: [address] Omeprazole 2021-0 Yes Take by Univ ers 20 mg 4-15 mouth. ity of tablet 11:42: [address] Omeprazole 2021-0 Yes Take by Univ ers 20 mg 4-15 mouth. ity of tablet 11:42: [address] Omeprazole 2021-0 Yes Take by Univ ers 20 mg 4-15 mouth. ity of tablet 11:42: [address] Omeprazole 2021-0 Yes Take by Univ ers 20 mg 4-15 mouth. ity of tablet 11:42: [address] Omeprazole 2021-0 Yes Take by Univ ers 20 mg 4-15 mouth. ity of tablet 11:42: [address] Omeprazole 2021-0 Yes Take by Univ ers 20 mg 4-15 mouth. ity of tablet 11:42: [address] acetaminoph 2021-0 Yes [id number] 1{tbl} Take 1 Un mayra en-codeine 4-13 tablet by ity of 300-30 mg 00:00: mouth [place] tablet 00 every 4 Medical (four) Branch hours as needed for Pain (scale 4-6). Indication s: acute pain acetaminoph 2021-0 Yes [id number] 1{tbl} Take 1 Un mayra en-codeine 4-13 tablet by ity of 300-30 mg 00:00: mouth [place] tablet 00 every 4 Medical (four) Branch hours as needed for Pain (scale 4-6). Indication s: acute pain acetaminoph 2021-0 Yes [id number] 1{tbl} Take 1 Un mayra en-codeine 4-13 tablet by ity of 300-30 mg 00:00: mouth [place] tablet 00 every 4 Medical (four) Branch hours as needed for Pain (scale 4-6). Indication s: acute pain acetaminoph 2022-0 Yes [id number] 1{tbl} Take 1 Un mayra en-codeine 4-13 tablet by ity of 300-30 mg 00:00: mouth [place] tablet 00 every 4 Medical (four) Branch hours as needed for Pain (scale 4-6). Indication s: acute pain acetaminoph 2022-0 Yes [id number] 1{tbl} Take 1 Un mayra en-codeine 4-13 tablet by ity of 300-30 mg 00:00: mouth [place] tablet 00 every 4 Medical (four) Branch hours as needed for Pain (scale 4-6). Indication s: acute pain acetaminoph 2022-0 Yes [id number] 1{tbl} Take 1 Un mayra en-codeine 4-13 tablet by ity of 300-30 mg 00:00: mouth [place] tablet 00 every 4 Medical (four) Branch hours as needed for Pain (scale 4-6). Indication s: acute pain acetaminoph 2022-0 Yes [id number] 1{tbl} Take 1 Un mayra en-codeine 4-13 tablet by ity of 300-30 mg 00:00: mouth [place] tablet 00 every 4 Medical (four) Branch hours as needed for Pain (scale 4-6). Indication s: acute pain acetaminoph 2022-0 Yes [id number] 1{tbl} Take 1 Un mayra en-codeine 4-13 tablet by ity of 300-30 mg 00:00: mouth [place] tablet 00 every 4 Medical (four) Branch hours as needed for Pain (scale 4-6). Indication s: acute pain acetaminoph 2022-0 Yes [id number] 1{tbl} Take 1 Un mayra en-codeine 4-13 tablet by ity of 300-30 mg 00:00: mouth [place] tablet 00 every 4 Medical (four) Branch hours as needed for Pain (scale 4-6). Indication s: acute pain acetaminoph 2022-0 Yes [id number] 1{tbl} Take 1 Un mayra en-codeine 4-13 tablet by ity of 300-30 mg 00:00: mouth [place] tablet 00 every 4 Medical (four) Branch hours as needed for Pain (scale 4-6). Indication s: acute pain acetaminoph Yes [id number] 1{tbl} Take 1 Un mayra en-codeine 4-13 tablet by ity of 300-30 mg 00:00: mouth [place] tablet 00 every 4 Medical (four) Branch hours as needed for Pain (scale 4-6). Indication s: acute pain diazePAM 5 Yes TAKE 1 Unive rs mg tablet 3-09 TABLET THE ity of 00:00: EVENING [place] 00 BEFORE Medical GOING TO Branch BED AND 1 TABLET 1 HOUR BEFORE APPOINTMEN T diazePAM 5 Yes TAKE 1 Unive rs mg tablet 3-09 TABLET THE ity of 00:00: EVENING [place] 00 BEFORE Medical GOING TO Branch BED AND 1 TABLET 1 HOUR BEFORE APPOINTMEN T diazePAM 5 Yes TAKE 1 Unive rs mg tablet 3-09 TABLET THE ity of 00:00: EVENING [place] 00 BEFORE Medical GOING TO Branch BED AND 1 TABLET 1 HOUR BEFORE APPOINTMEN T diazePAM 5 Yes TAKE 1 Unive rs mg tablet 3-09 TABLET THE ity of 00:00: EVENING [place] 00 BEFORE Medical GOING TO Branch BED AND 1 TABLET 1 HOUR BEFORE APPOINTMEN T diazePAM 5 Yes TAKE 1 Unive rs mg tablet 3-09 TABLET THE ity of 00:00: EVENING [place] 00 BEFORE Medical GOING TO Branch BED AND 1 TABLET 1 HOUR BEFORE APPOINTMEN T diazePAM 5 Yes TAKE 1 Unive rs mg tablet 3-09 TABLET THE ity of 00:00: EVENING [place] 00 BEFORE Medical GOING TO Branch BED AND 1 TABLET 1 HOUR BEFORE APPOINTMEN T diazePAM 5 Yes TAKE 1 Unive rs mg tablet 3-09 TABLET THE ity of 00:00: EVENING [place] 00 BEFORE Medical GOING TO Branch BED AND 1 TABLET 1 HOUR BEFORE APPOINTMEN T diazePAM 5 Yes TAKE 1 Unive rs mg tablet 3-09 TABLET THE ity of 00:00: EVENING [place] 00 BEFORE Medical GOING TO Branch BED AND 1 TABLET 1 HOUR BEFORE APPOINTMEN T diazePAM 5 Yes TAKE 1 Unive rs mg tablet 3-09 TABLET THE ity of 00:00: EVENING [place] 00 BEFORE Medical GOING TO Branch BED AND 1 TABLET 1 HOUR BEFORE APPOINTMEN T diazePAM 5 Yes TAKE 1 Unive rs mg tablet 3-09 TABLET THE ity of 00:00: EVENING [place] 00 BEFORE Medical GOING TO Branch BED AND 1 TABLET 1 HOUR BEFORE APPOINTMEN T diazePAM 5 Yes TAKE 1 Unive rs mg tablet 3-09 TABLET THE ity of 00:00: EVENING [place] 00 BEFORE Medical GOING TO Branch BED AND 1 TABLET 1 HOUR BEFORE APPOINTMEN T ALBUTEROL 0 Yes Inhale as Uni vers INHALE 8-05 needed. ity of 17:39: [address] ALBUTEROL Yes Inhale as Uni vers INHALE 8-05 needed. ity of 17:39: [address] ALBUTEROL Yes Inhale as Uni vers INHALE 8-05 needed. ity of 17:39: [address] Vital Signs Vital Name Observation Time Observation Value Comments Source Systolic blood 2022-12-24 19:00:00 149 mm[Hg] Univer sity of [facility] Diastolic blood 2022-12-24 19:00:00 91 mm[Hg] [facility] 2022-12-24 19:00:00 76 /min [facility] Respiratory rate 2022-12-24 19:00:00 20 /min [facility] Oxygen saturation in 2022-12-24 19:00:00 100 /min [facility] Arterial blood by [facility] Pulse oximetry [place] Body temperature 2022-12-24 16:49:00 37.11 Dulce [facility] Body height 2022-12-24 16:49:00 165.1 cm [facility] Body weight 2022-12-24 16:49:00 79.379 kg [facility] BMI 2022-12-24 16:49:00 29.12 kg/m2 [facility] Systolic blood 2022-05-09 16:29:00 143 mm[Hg] Univer sity of [facility] Diastolic blood 2022-05-09 16:29:00 79 mm[Hg] Unive rsity of [facility] Heart rate 2022-05-09 16:28:00 88 /min [facility] Body temperature 2022-05-09 16:28:00 37.06 Dulce [facility] Respiratory rate 2022-05-09 16:28:00 16 /min Univ ers[facility] [place] [facility] Body height 2022-05-09 16:28:00 165.1 cm [facility] [place] [facility] Body weight 2022-05-09 16:28:00 68.629 kg [facility] [place] [facility] BMI 2022-05-09 16:28:00 25.18 kg/m2 [facility] [place] [facility] Oxygen saturation in 2022-05-09 16:28:00 100 /min University of Arterial blood by [facility] Pulse oximetry Branch Systolic blood 2022-05-03 15:02:00 144 mm[Hg] Univer sity of [facility] [place] [facility] Diastolic blood 2022-05-03 15:02:00 93 mm[Hg] Unive rsity of [facility] [place] [facility] Heart rate 2022-05-03 14:53:00 71 /min [facility] [place] [facility] Body temperature 2022-05-03 14:53:00 37.56 Dulce [facility] [place] [facility] Respiratory rate 2022-05-03 14:53:00 16 /min Univ [facility] [place] [facility] Body height 2022-05-03 14:53:00 165.1 cm [facility] [place] [facility] Body weight 2022-05-03 14:53:00 67.858 kg [facility] [place] [facility] BMI 2022-05-03 14:53:00 24.89 kg/m2 [facility] [place] [facility] Oxygen saturation in 2022-05-03 14:53:00 99 /min University of Arterial blood by [facility] Pulse oximetry Branch Systolic blood 2022-04-28 16:41:00 160 mm[Hg] Univer sity of [facility] [place] [facility] Diastolic blood 2022-04-28 16:41:00 92 mm[Hg] Unive rsity of [facility] [place] [facility] Heart rate 2022-04-28 16:40:00 69 /min [facility] [place] [facility] Body temperature 2022-04-28 16:40:00 36.83 Dulce Univ [facility] [place] [facility] Respiratory rate 2022-04-28 16:40:00 17 /min Univ [facility] [place] [facility] Body weight 2022-04-28 16:40:00 66.679 kg [facility] [place] [facility] BMI 2022-04-28 16:40:00 24.46 kg/m2 [facility] [place] [facility] Oxygen saturation in 2022-04-28 16:40:00 100 /min University of Arterial blood by [place] [facility] Pulse oximetry Branch Systolic blood 2022-03-17 21:58:00 142 mm[Hg] Univer sity of [facility] [place] [facility] Diastolic blood 2022-03-17 21:58:00 84 mm[Hg] Unive rsity of [facility] [place] [facility] Heart rate 2022-03-17 21:51:00 92 /min [facility] [place] [facility] Body temperature 2022-03-17 21:51:00 37.61 Dulce [facility] [place] [facility] Respiratory rate 2022-03-17 21:51:00 17 /min Univ [facility] [place] [facility] Body height 2022-03-17 21:51:00 165.1 cm [facility] [place] [facility] Body weight 2022-03-17 21:51:00 70.444 kg [facility] [place] [facility] BMI 2022-03-17 21:51:00 25.84 kg/m2 [facility] [place] [facility] Oxygen saturation in 2022-03-17 21:51:00 100 /min University of Arterial blood by [facility] Pulse oximetry Branch Systolic blood 2022-01-06 22:40:00 159 mm[Hg] Univer sity of [facility] [place] [facility] Diastolic blood 2022-01-06 22:40:00 84 mm[Hg] Unive rsity of [facility] [place] [facility] Heart rate 2022-01-06 22:35:00 69 /min [facility] [place] [facility] Body temperature 2022-01-06 22:35:00 36.67 Dulce [facility] [place] [facility] Respiratory rate 2022-01-06 22:35:00 18 /min Univ [facility] [place] [facility] Body height 2022-01-06 22:35:00 152.4 cm [facility] [place] [facility] Body weight 2022-01-06 22:35:00 68.947 kg [facility] [place] [facility] Branch BMI 2022-01-06 22:35:00 29.69 kg/m2 [facility] Oxygen saturation in 2022-01-06 22:35:00 100 /min [facility] Arterial blood by [facility] Pulse oximetry Branch Procedures Procedure Date / Time Performed Performing Clinician Sourc e LIPASE 2022-12-24 18:42:00 Long Cole [facility] COMP. METABOLIC PANEL 2022-12-24 18:42:00 Long Cole Un [facility] ([id number]) [facility] CT ABDOMEN PELVIS WO 2022-12-24 17:50:00 Long Cole Uni [facility] CBC WITH DIFF 2022-12-24 17:40:00 Long Cole [facility] URINALYSIS 2022-12-24 16:58:00 Long Cole [facility] POCT URINALYSIS 2022-05-09 16:55:00 Lona Brikn [facility] POCT RAPID FLU A AND B 2022-04-28 17:10:00 Nitish Penny [facility] POCT MOLECULAR STREP 2022-04-28 16:49:00 Unknown, Attending [facility] POCT URINALYSIS 2022-03-17 21:55:00 Yin Pham [facility] POCT URINALYSIS 2022-01-06 22:39:00 Nitish Penny [facility] Encounters Start End Encounter Admission Attending Care Care Encounter Source Date/Time Date/Time Type Type Clinicians Facility Department ID 2022-12-24 2022-12-24 Emergency [facility] [id number] Univers 11:50:00 14:58:00 [facility]22-12-24 2022-12-24 [facility] 1.2.840.114 [id number] Univers 11:50:00 14:58:00 Long [facility] 4.2.7.2.686 [facility] [phone] [facility] 084 Branch 2022-05-09 2022-05-09 Outpatient R ZISELECT [facility]ICAL [facility] [id number] Univers 10:40:00 12:20:29 SONDRA zekeelo o donna [facility] 2022-05-09 2022-05-09 Urgent [address] Brink [facility] 1.2.840. 114 [id number] Univers 10:40:00 12:20:29 Care Unknown, Attending HEALTH [id number] ity of Sondra Moeller Aziza [facility] 4.2.7.2.686 [place] LISA?BLEA [id number] [address] MEDICAL OFFICE [facility] 2022-05-03 2022-05-03 Urgent Gaston Mcdonald [facility] 1.2.840.114 [id number] Univers 09:20:00 09:40:00 Care Unknown, Attending HEALTH [id number] ity of [place] 4.2.7.2.686 Jamie as LISA?BLEA [phone] [address] OFFICE [facility] 2022-05-03 2022-05-03 Outpatient R [facility] [id number] Univers 09:20:00 09:20:00 GASTON elo [facility] 2022-05-03 2022-05-[address] [facility] 1.2.840.114 [id number] Univers 00:00:00 00:00:00 (Out) [facility] [id number] it y of [place] 4.2.7.2.686 Jamie as LISA?BLEA [phone] [address] OFFICE [facility] 2022-04-28 2022-04-28 Urgent Nitish Penny [facility] .2.840.114 [id number] Univers 11:40:00 12:00:00 Care Unknown, Attending HEALTH [id number] ity of [place] 4.2.7.2.686 Jamie as LISA?BLEA [id number] [address] OFFICE [facility] 2022-04-28 2022-04-28 Outpatient R [facility] [id number] Univers 11:40:00 11:40:00 NITISH [facility] 2022-04-28 2022-04-[address] [facility] 1.2.840.114 [id number] Univers 00:00:00 00:00:00 (Out) [facility] [id number] it y of [place] 4.2.7.2.686 Jamie as LISA?BLEA [id number] [address] MEDICAL OFFICE [facility] 2022-03-17 2022-03-17 Outpatient R [facility] [id number] Univers 17:00:00 17:01:57 RANIA ity [facility] 2022-03-17 2022-03-17 Urgent [facility] 1.2.840.114 [id number] Univers 17:00:00 17:01:57 Care Unknown, [facility] HEALTH 350.1.13.10 ity of [place] 4.2.7.2.686 Jamie as LISA?BLEA [phone] [address] OFFICE [facility] 2022-01-06 2022-01-06 Outpatient Stuart [facility] [id number] Univers 18:00:00 18:42:09 YIN ity [facility] 2022-01-06 2022-01-[address] [facility] 1.2.840.114 [id number] Univers 18:00:00 18:42:09 Care [facility] [id number] it y of [place] 4.2.7.2.686 Jamie as LISA?BLEA [id number] [address] OFFICE [facility] 2021-12-31 2021-12-31 Letter DENNY Adorno 1.2.840.114 [id number] Univers 00:00:00 00:00:00 (Out) Lora BE 350.1.13.10 it y of [facility] 4.2.7.2.686 Jamie as [id number] [address] 2021-12-30 2021-12-30 Outpatient Stuart [facility] [id number] Univers 13:30:00 13:51:21 [facility] 2021-12-30 2021-12-30 Laboratory Only, Ang Db Test [facility] 1.2.8 40.114 [id number] Univers 13:30:00 13:45:00 Only Yin Pham [facility] 350.1.13.10 ity of [facility] 4.2.7.2.686 Jamie as LISA?BLEA [id number] [address] MEDICAL OFFICE [facility] 2021-12-30 2021-12-30 Outpatient R [facility] [id number] Univers 13:30:00 13:30:00 YIN elo [facility] 2021-12-27 2021-12-27 Urgent Padmini Ghotra [facility] 1.2.840. 114 [id number] Univers 15:20:00 15:40:00 Care HarryGaston [facility] 350.1.13.10 ity of [facility] 4.2.7.2.686 Jamie as LISA?BLEA [id number] [address] MEDICAL OFFICE [facility] 2021-12-27 2021-12-27 Outpatient R [facility] [id number] Univers 15:20:00 13:00:23 PADMINI sumner o f [facility] 2021-12-01 2021-12-01 Outpatient R [facility] [id number] Univers 08:30:00 08:30:00 ARMEN GONZALEZ elo [facility] 2021-12-01 2021-12-01 Outpatient R [facility] [id number] Univers 08:30:00 08:30:00 ARMEN GONZALEZ elo [facility] 2021-11-10 2021-11-10 Patient Doctor DENNY 1.2.840.114 [id number] Univers 00:00:00 00:00:00 Secure Msg Unassigned, [place] 350.1.13.10 ity of [place] [facility] 4.2.7.2.686 Jamie as [phone] [address] 2021-11-05 2021-11-05 [facility], Ang - Sheldon [facility] 1.2.840.1 14 [id number] Univers 10:00:00 10:19:24 Visit Ebenezer Perez [facility] 350.1.13.10 ity of [facility] 4.2.7.2.686 Jamie as LISA?BLEA [phone] Mn amelia MURO [address] MEDICAL OFFICE [facility] 2021-11-05 2021-11-05 Outpatient Stuart [facility] [id number] Univers 10:00:00 10:00:00 EBENEZER elo [facility] 2021-11-02 2021-11-02 [facility], Ang - Db [facility] 1.2.840.1 14 [id number] Univers 09:30:00 09:45:00 Visit Michael Armen [facility] 350.1.13. 10 ity of [place] 4.2.7.2.686 Jamie as LISA?BLEA [phone] Mn amelia MURO [address] [facility] OFFICE [facility] 2021-11-02 2021-11-02 Outpatient ARMEN [facility] [id number] Univers 08:40:00 09:20:17 MICHAELARMEN [facility] 2021-11-02 2021-11-[address] [facility] 1.2.840.114 [id number] Univers 08:40:00 09:20:17 Visit [facility] 350.1.13.10 ity of [place] 4.2.7.2.686 Jamie as LISA?BLEA [phone] Mn amelia MURO 0[address] [facility] OFFICE [facility] 2021-11-02 2021-11-02 Outpatient Stuart [facility] [id number] Univers 08:40:00 09:20:17 ARMEN GONZALEZ [facility] 2021-11-02 2021-11-02 Orders Doctor BALDWIN 1.2.840.114 [id number] Univers 00:00:00 00:00:00 Only Unassigned, [place] 350.1.13.10 ity of [facility] 4.2.7.2.686 Jamie as [phone] [address] 2021-10-20 2021-10-20 Emergency X DANIELE RIGISELLE ERT [id number] Univers 19:51:00 23:42:00 MAYELA sumner [facility] 2021-10-20 2021-10-20 Emergency Daniele RIGISELLE 1.2.276.949 [id number] Univers 19:51:00 23:42:00 Mayela GIBBSAFIA 350.1.13.10 i ty of [place] 4.2.7.2.686 [facility] [phone] [address] 2021-10-20 2021-10-20 Orders Doctor DENNY 1.2.840.114 [id number] Univers 00:00:00 00:00:00 Only Unassigned, [place] 350.1.13.10 ity of [place] [facility] 4.2.7.2.686 Jamie as [id number] [address] 2021-09-14 2021-09-14 Emergency X HEMALATHA [facility] ERT [id number] Univers 13:52:00 20:15:00 NITISH burak [facility] 2021-09-14 2021-09-14 [facility] 1.2.840.114 [id number] Univers 13:52:00 20:15:00 Nitish GIBBSAFIA 350.1.13.10 i ty of [place] 4.2.7.2.[address] [place] [id number] 2021-07-28 2021-07-28 Emergency X , [facility] ERT [id number] Univers 10:43:00 12:22:00 CHILO burak [facility] 2021-07-28 2021-07-28 Emergency [facility] 1.2.363.912 [id number] Univers 10:43:00 12:22:00 Chilo SIERRA 350.1.13.10 i ty of [place] 4.2.7.[address] [place] [id number] 2021-07-28 2021-07-28 Orders Doctor DENNY 1.2.840.114 [id number] Univers 00:00:00 00:00:00 Only Unassigned, [place] 350.1.13.10 ity of [place] [facility] 4.2.7.2.686 Jamie as [phone] [address] 2021-02-10 2021-02-11 Emergency Chilo Palencia [facility] 1.2.840. 114 [id number] Univers 08:06:00 17:35:00 Héctor Dumont 350.1.13.10 ity of [place] 4.2.7.2.686 [facility] [id number] [facility] 081 Branch 2021-02-11 2021-02-[address] [facility] 1.2.840.114 [id number] Univers 07:35:00 08:09:00 Jose sánchez 350.1.13.10 ity of [place] 4.2.7.2.686 [facility] [id number] [facility] 020 Branch 2021-02-10 2021-02-10 Emergency X SINGER [facility] ERT [id number] Univers 08:06:00 08:06:00 CHILO ity [facility] 2021-02-10 2021-02-10 Orders Doctor DENNY 1.2.840.114 [id number] Univers 00:00:00 00:00:00 Only Unassigned, [place] 350.1.13.10 ity of [facility] 4.2.7.2.686 [facility] [id number] [facility] 009 Branch 2020-05-22 2020-05-23 Emergency Eddie Garcia [facility] 1.2.840. 114 [id number] 08:27:00 13:30:00 Héctor Dumont 350.1.13.10 [place] 4.2.7.2.686 [place] [phone] [facility] 2020-05-22 2020-05-23 [facility] 1.2.840. 114 [id number] Univers 08:27:00 13:30:00 Héctor Dumont 350.1.13.10 ity of [place] 4.2.7.2.686 [facility] [phone] [facility] 080 Branch 2020-05-22 2020-05-[address] [facility] ERT [id number] Univers 08:16:00 08:16:00 ity of [facility] Results Test Description Test Time Test Comments Results Result Comments Source CBC WITH DIFF 2022-12-24 18:12:14 Test Item Value Reference Range Interpretation Comme nts WBC (test code = 6690-2) 7.51 See_Comment [A utomated message] The system which ge nerated this result transmit aden reference range: 4.30 - 1 1.10 10*3/?L. The reference r alivia was not used to interpr et this result as normal/abnor mal. RBC (test code = 789-8) 5.18 See_Comment [Au tomated message] The system which ge nerated this result transmit aden reference range: 3.93 - 5 .25 10*6/?L. The reference r alivia was not used to interpr et this result as normal/abnor mal. HGB (test code = 718-7) 11.3 g/dL 11.6-15.0 L HCT (test code = 4544-3) 35.1 % 35.7-45.2 L MCV (test code = 787-2) 67.8 fL 80.6-95.5 L MCH (test code = 785-6) 21.8 pg 25.9-32.8 L MCHC (test code = 786-4) 32.2 g/dL 31.6-35.1 RDW-SD (test code = 32407-0) 39.2 fL 39.0-49.9 RDW-CV (test code = 788-0) 17.6 % 12.0-15.5 H PLT (test code = 777-3) 284 See_Comment [Au tomated message] The system which ge nerated this result transmit aden reference range: 166 - 35 8 10*3/?L. The reference range was not used to interpret th is result as normal/abnormal . MPV (test code = 03958-2) 9.9 fL 9.5-12.9 NRBC/100 WBC (test code = 0.0 See_Comment [ Automated message] The [id number]) system which Volta nerated this result transmit aden reference range: 0.0 - 10 .0 /100 WBCs. The reference r alivia was not used to interpr et this result as normal/abnor mal. NRBC x10^3 (test code = See_Comment [Au tomated message] The [id number]) system which Volta nerated this result transmit aden reference range: 10*3/?L. The reference range was not u sed to interpret this result as normal/abnormal . GRAN MAT (NEUT) % (test code 66.5 % = 770-8) IMM GRAN % (test code = 0.10 % [id number]) LYMPH % (test code = 736-9) 21.7 % MONO % (test code = 5905-5) 8.0 % EOS % (test code = 713-8) 3.3 % BASO % (test code = 706-2) 0.4 % GRAN MAT x10^3(ANC) (test 4.99 10*3/uL 1.88-7.09 code = 5144589556) IMM GRAN x10^3 (test code = 0.00-0.06 6335508723) LYMPH x10^3 (test code = 1.63 10*3/uL 1.32-3.29 731-0) MONO x10^3 (test code = 0.60 10*3/uL 0.33-0.92 742-7) EOS x10^3 (test code = 0.25 10*3/uL 0.03-0.39 711-2) BASO x10^3 (test code = 0.03 10*3/uL 0.01-0.07 704-7) Lab Interpretation (test Abnormal code = 61463-4) [facility] URINALYSIS W SPECIFIC [id number] 17:01:00 Test Item Value Reference Range Interpretation Comments POCT U SP GRAV (test 1.015 mg/dl 1.005-1.025 code = 3255) POCT PH U (test code = 7 mg/dl 5-8 3254) POCT U LEUK EST (test 1+ Negative - code = 3263) Negative POCT U NIT (test code negative Negative - = 3262) Negative POCT U PROT (test code trace Negative - = 3259) Negative POCT U GLU (test code negative Negative - = 3256) Negative POCT U KETONE (test negtive Negative - code = 3258) Negative POCT U UROBILI (test normal 0.2-1 code = 3260) POCT U BILI (test code negative Negative - = 3261) Negative POCT U BLD (test code Negative - = 3257) Negative POCT U COLOR (test dark yellow code = 3266) POCT U APPEAR (test cloudy code = 3267) FRANCOISE (test code = FRANCOISE) accurate development and interpretation of all internal controls Lab Interpretation Abnormal (test code = 36156-8) [facility] RAPID FLU A AND B [id number] 17:11:00 Test Item Value Reference Range Interpretation Comments POCT INFLUENZA A (test neg Negative - code = 3840) Negative POCT INFLUENZA B (test neg Negative - code = 3841) Negative FRANCOISE (test code = FRANCOISE) accurate development and interpretation of all internal controls Lab Interpretation Normal (test code = 17878-1) [facility] MOLECULAR [id number] 16:56:51 Test Item Value Reference Range Interpretation Comments POCT Molecular Strep (test code = Negative Negative 28948-7) Lab Interpretation (test code = Normal 88924-5) [facility] URINALYSIS W SPECIFIC [id number] 21:56:00 Test Item Value Reference Range Interpretation Comments POCT U SP GRAV (test code = 1.030 mg/dl 1.005-1.025 A 3255) POCT PH U (test code = 3254) 5 mg/dl 5-8 POCT U LEUK EST (test code = ++ Negative - Negative 3263) POCT U NIT (test code = 3262) neg Negative - Negative POCT U PROT (test code = trace Negative - Negative 3259) POCT U GLU (test code = 3256) norm Negative - Negative POCT U KETONE (test code = neg Negative - Negative 3258) POCT U UROBILI (test code = norm 0.2-1 3260) POCT U BILI (test code = neg Negative - Negative 3261) POCT U BLD (test code = 3257) trace Negative - Negative POCT U COLOR (test code = yellow 3266) POCT U APPEAR (test code = cloudy 3267) Lab Interpretation (test code Abnormal = 44909-8) [facility] URINALYSIS W SPECIFIC [id number] 22:39:00 Test Item Value Reference Range Interpretation Comments POCT U SP GRAV (test 1.005 mg/dl 1.005-1.025 code = 3255) POCT PH U (test code = 7 mg/dl 5-8 3254) POCT U LEUK EST (test ++ Negative - code = 3263) Negative POCT U NIT (test code Negtaive Negative - = 3262) Negative POCT U PROT (test code trace Negative - = 3259) Negative POCT U GLU (test code normal Negative - = 3256) Negative POCT U KETONE (test negative Negative - code = 3258) Negative POCT U UROBILI (test normal 0.2-1 code = 3260) POCT U BILI (test code negative Negative - = 3261) Negative POCT U BLD (test code about 50 Negative - = 3257) Negative POCT U COLOR (test yellow code = 3266) POCT U APPEAR (test cloudy code = 3267) FRANCOISE (test code = FRANCOISE) accurate development and interpretation of all internal controls Lab Interpretation Abnormal (test code = 21638-0) [facility]
[2023-05-11 10:50] LABS: Specific Gravity 1.024 (1.005-1.030); Urine Bacteria <20 /HPF (<20); Urine Bilirubin 1+ (Negative); Urine Blood 3+ (OVER) (Negative); Urine Clarity Extremely Turbid (Clear); Urine Color Dark-Brown (Yellow); Urine Glucose NEGATIVE (Negative); Urine Mucus 3+ /HPF (None Seen); Urine Protein 3+ (Negative); Urine RBC >50 /HPF (None Seen); Urine Urobilinogen 1+ (Normal)
[2023-05-11 10:51] LABS: Specific Gravity 1.024 (1.005-1.030)
--- NOTE | 2023-05-11 10:56 | ER ---
Nurse's Notes [facility] Name: Stacie Valera Age: 53 yrs Sex: Female : 1970 Arrival Date: 05/11/2023 Time: 10:10 Bed 10 Private MD: Diagnosis: UTI/ Urinary tract infection, site not specified Presentation: 05/11 10:16 Chief complaint: Patient states: UTI-like symptoms for 2 weeks. States she gets them ll1 frequently. No fever. Coronavirus screen: Client denies travel out of the [place] in the last 14 days. At this time, the client does not indicate any symptoms associated with coronavirus-19. Ebola Screen: Patient denies travel to an Ebola-affected area in the 21 days before illness onset. Initial Sepsis Screen: Does the patient meet any 2 criteria? No. Patient's initial sepsis screen is negative. Does the patient have a suspected source of infection? Yes: Dysuria/Frequency/Urgency/UTI. Risk Assessment: Do you want to hurt yourself or someone else? Patient reports no desire to harm self or others. Onset of symptoms was April 30, 2023. 10:16 Method Of Arrival: Ambulatory ll1 10:16 Acuity: ORAL 4 ll1 Historical: - Allergies: 10:16 No Known Allergies; ll1 - PMHx: 10:16 acid reflux; Kidney stones; ll1 - Immunization history:: Adult Immunizations up to date. - Social history:: Smoking status: Patient denies any tobacco usage or history of. Screenin:35 [facility] ED Fall Risk Assessment (Adult) History of falling in the last 3 months, cp4 including since admission No falls in past 3 months (0 pts) Confusion or Disorientation No (0 pts) Intoxicated or Sedated No (0 pts) Impaired Gait No (0 pts) Mobility Assist Device Used No (0 pt) Altered Elimination No (0 pt) Score/Fall Risk Level 0 - 2 = Low Risk Oriented to surroundings, Maintained a safe environment, Educated pt \T\ family on fall prevention, incl call for assistance when getting out of bed, Hourly rounding (assess needs \T\ fall precautionary measures) done. Abuse screen: Denies threats or abuse. Nutritional screening: No deficits noted. Tuberculosis screening: No symptoms or risk factors identified. Assessment: 10:35 General: Appears in no apparent distress. Behavior is calm, cooperative, appropriate cp4 for age. Pain: Complains of pain in pelvic. : Reports burning with urination, pain in suprapubic area urinary frequency, since 2 weeks. Vital Signs: 10:16 BP 156 / 98; Pulse 85; Resp 17; Temp 98.8; Pulse Ox 100% ; Weight 72.57 kg; Height 5 ll1 ft. 5 in. ; Pain 6/10; 11:14 BP 147 / 89; Pulse 75; Resp 16; Pulse Ox 100% ; cp4 10:16 Body Mass Index 26.63 (72.57 kg, 165.1 cm) ll1 10:16 Pain Scale: Adult ll1 ED Course: 10:13 Patient arrived in ED. mg5 10:14 Dean Engle MD is Attending Physician. sp3 10:17 Triage completed. ll1 10:17 Arm band placed on Patient placed in an exam room, on a stretcher. ll1 10:20 Meenu Tomlin is Primary Nurse. cp4 10:35 Bed in low position. Call light in reach. Side rails up X 1. cp4 10:35 No provider procedures requiring assistance completed. Patient did not have IV access cp4 during this emergency room visit. 11:14 Provided Education on: urinary tract infection. cp4 Administered Medications: No medications were administered Medication: 10:35 VIS not applicable for this client. cp4 Outcome: 10:55 Discharge ordered by . sp3 11:11 Patient left the ED. kj1 11:14 Discharged to home ambulatory, cp4 11:14 Condition: stable 11:14 Discharge instructions given to patient, Instructed on discharge instructions, follow up and referral plans. medication usage, Demonstrated understanding of instructions, follow-up care, medications, Prescriptions given X 1, Signatures: Kyra Magana kj1 Candi Long, RN RN ll1 Dean Engle MD MD sp3 Lenore Pineda mg5 Meenu Tomlin cp4
--- NOTE | 2023-05-11 10:56 | EDPHYS ---
Physician Documentation [facility] Name: Stacie Valera Age: 53 yrs Sex: Female : 1970 Arrival Date: 05/11/2023 Time: 10:10 Bed 10 Private MD: ED Physician Dean Engle HPI: 05/11 10:36 This 53 yrs old Female presents to ER via Ambulatory with complaints of Urinary Problem.sp3 10:36 53-year-old female with a history of multiple UTIs, kidney stones presents to the ED sp3 with chief complaint urinary frequency, dysuria consistent with UTI. She denies any back pain or flank pain and she does not feel like this is a kidney stone episode she has had many in the past. She denies any abdominal pain, nausea, vomiting, diarrhea, chest pain, shortness of breath, [employer] symptoms, fever, or any other signs or symptoms on ROS at this time.. Historical: - Allergies: 10:16 No Known Allergies; ll1 - PMHx: 10:16 acid reflux; Kidney stones; ll1 - Immunization history:: Adult Immunizations up to date. - Social history:: Smoking status: Patient denies any tobacco usage or history of. ROS: 10:37 Constitutional: Negative for fever, chills, and weight loss, Eyes: Negative for injury, sp3 pain, redness, and discharge, ENT: Negative for injury, pain, and discharge, Neck: Negative for injury, pain, and swelling, Cardiovascular: Negative for chest pain, palpitations, and edema, Respiratory: Negative for shortness of breath, cough, wheezing, and pleuritic chest pain, Back: Negative for injury and pain, MS/Extremity: Negative for injury and deformity, Skin: Negative for injury, rash, and discoloration, Neuro: Negative for headache, weakness, numbness, tingling, and seizure, Psych: Negative for depression, anxiety, suicide ideation, homicidal ideation, and hallucinations, Allergy/Immunology: Negative for hives, rash, and allergies, Endocrine: Negative for neck swelling, polydipsia, polyuria, polyphagia, and marked weight changes, Hematologic/Lymphatic: Negative for swollen nodes, abnormal bleeding, and unusual bruising, 10:37 All other systems are negative, Exam: 10:37 Constitutional: This is a well developed, well nourished patient who is awake, alert, sp3 and in no acute distress. Head/Face: Normocephalic, atraumatic. Neck: Trachea midline, no thyromegaly or masses palpated, and no cervical lymphadenopathy. Supple, full range of motion without nuchal rigidity, or vertebral point tenderness. No Meningismus. Chest/axilla: Normal chest wall appearance and motion. Nontender with no deformity. No lesions are appreciated. Cardiovascular: Regular rate and rhythm with a normal S1 and S2. No gallops, murmurs, or rubs. Normal PMI, no JVD. No pulse deficits. Respiratory: Lungs have equal breath sounds bilaterally, clear to auscultation and percussion. No rales, rhonchi or wheezes noted. No increased work of breathing, no retractions or nasal flaring. Abdomen/GI: Soft, non-tender, with normal bowel sounds. No distension or tympany. No guarding or rebound. No evidence of tenderness throughout. Back: No spinal tenderness. No costovertebral tenderness. Full range of motion. Skin: Warm, dry with normal turgor. Normal color with no rashes, no lesions, and no evidence of cellulitis. MS/ Extremity: Pulses equal, no cyanosis. Neurovascular intact. Full, normal range of motion. Neuro: Awake and alert, GCS 15, oriented to person, place, time, and situation. Cranial nerves II-XII grossly intact. Motor strength 5/5 in all extremities. Sensory grossly intact. Cerebellar exam normal. Normal gait. Psych: Awake, alert, with orientation to person, place and time. Behavior, mood, and affect are within normal limits. Vital Signs: 10:16 BP 156 / 98; Pulse 85; Resp 17; Temp 98.8; Pulse Ox 100% ; Weight 72.57 kg; Height 5 ll1 ft. 5 in. ; Pain 6/10; 11:14 BP 147 / 89; Pulse 75; Resp 16; Pulse Ox 100% ; cp4 10:16 Body Mass Index 26.63 (72.57 kg, 165.1 cm) ll1 10:16 Pain Scale: Adult ll1 MDM: 10:18 Patient medically screened. sp3 10:38 Data reviewed: vital signs, nurses notes, lab test result(s). ED course: 53-year-old sp3 female with likely UTI. I have clinically ruled out pyelonephritis and most likely rule out kidney stone. If there is significant blood in her urine, we will consider CT scan looking for kidney stone however clinically patient most likely has a UTI. UA and hCG are currently pending and we will disposition further as needed from there.. 10:54 ED course: Urinalysis has multiple squamous cells therefore not fully reliable. Given sp3 white cells and red cells, I did advise for CT scan however patient feels that her symptoms appear UTI related. Patient states that she will return if symptoms are worse for a scan if needed. We will place patient on Bactrim p.o. and discharged home at this time.. 05/11 10:19 Order name: UAM; Complete Time: 10:53 sp3 05/11 10:19 Order name: Test, Urine; Complete Time: 10:53 sp3 Administered Medications: No medications were administered Disposition Summary: 05/11/23 10:55 Discharge Ordered Notes: Location: Home sp3 Condition: Stable sp3 Diagnosis - UTI/ Urinary tract infection, site not specified sp3 Followup: sp3 - With: Private Physician - When: Upon discharge from the Emergency Department - Reason: Continuance of care Discharge Instructions: - Discharge Summary Sheet sp3 - Urinary Tract Infection, Adult sp3 Forms: - Medication Reconciliation Form sp3 - Thank You Letter sp3 - Antibiotic Education sp3 - Prescription Opioid Use sp3 - Patient Portal Instructions sp3 - Leadership Thank You Letter sp3 Prescriptions: - Bactrim DS 800-160 mg Oral tablet - take 1 tablet ORAL route every 12 hours for 5 days; 10 tablet; Refills: 0, sp3 Product Selection Permitted Signatures: Dispatcher [employer] EDCandi Morocho, RN RN ll1 Dean Engle MD MD sp3
[2023-05-11 11:15] VITALS: BP 156/98; TEMP 98.8; O2SAT 100
== END 2023-05-11 11:11 | disposition home or self-care (01) ==
LOC: ER 10:10
DX: N39.0 Urinary tract infection, site not specified (principal); Z87.442 Personal history of urinary calculi
CPT/HCPCS: 81001; 81025; 99283